=== PATIENT | female | born 1950 | race Caucasian/White ===

== ENCOUNTER → 2016-12-26 | Outpatient (CLI) | payer OTHER, BC ==
[~2016-12-26] MED LIST: FSM70 PO; GLUCOSAMINE; HYDCR1; MULT-506 PO; SYN50 PO; VTMEUNK
--- NOTE | 2016-12-26 12:00 | DIAGNOSTIC IMAGING REPORT ---
LEFT FOOT 3 VIEWS HISTORY: LEFT FOOT PAIN COMPARISON: None. FINDINGS: There is no fracture or dislocation. The Lisfranc joint is intact. Soft tissue and bony bunion. Small sclerotic focus within the proximal phalanx of the first toe consistent with a bone island. Tiny plantar heel spur. Mild osteoarthritis within the first MTP joint. Tiny nonspecific erosion at the medial base of the proximal phalanx of the first toe. No radiopaque foreign bodies. IMPRESSION: 1. Soft tissue and bony bunion. 2. No fractures. 3. Tiny erosion at the base of the proximal phalanx of the first toe. This is nonspecific but could represent gouty arthritis. Electronically signed by: Tico Rey M.D. 12/26/2016 11:58 AM Dictated Date/Time: 12/26/2016 11:55 AM
== END | disposition home or self-care (01) ==
LOC: C.RDSM 12:06
PROVIDERS: ATTEND Physician Assistant
DX: R52 Pain, unspecified (principal)

== ENCOUNTER 2024-05-27 11:26 | Observation (INO) ==
--- NOTE | 2024-05-27 12:01 | Electrocardiogram Report ---
Test Reason : Blood Pressure : */* mmHG Vent. Rate : 80 BPM Atrial Rate : 80 BPM P-R Int : 174 ms QRS Dur : 74 ms QT Int : 416 ms P-R-T Axes : 71 57 77 degrees QTcB Int : 479 ms Normal sinus rhythm Possible Left atrial enlargement Cannot rule out Septal infarct (cited on or before 08-May-2024) Abnormal ECG When compared with ECG of 08-May-2024 07:55, No significant change was found Confirmed by Mitchel Turner ([id number]) on 05/27/2024 12:00:51 PM Referred By: Confirmed By: Mitchel Turner
[2024-05-27 12:11] LABS: Basophils # (auto) 0.02 K/uL (0.00-0.20); Basophils % (auto) 0.4 %; Eosinophils # (auto) 0.01 K/uL (0.00-0.50); Eosinophils % (auto) 0.2 %; Hematocrit (blood only) 36.6 % (37.0-47.0); Hemoglobin 12.3 g/dl (12.0-16.0); Immature Granulocytes # (auto) 0.02 K/uL (0.01-0.20); Immature Granulocytes % (auto) 0.4 %; Lymphocytes # (auto) 0.88 K/uL (1.20-3.40); Lymphocytes % (auto) 17.6 %; Mean Corpuscular Hemoglobin 29.6 pg (25.0-34.0); Mean Corpuscular Hgb Conc 33.6 g/dL (32.0-36.0); Mean Platelet Volume 9.3 fL (9.4-12.4); Monocytes # (auto) 0.22 K/uL (0.11-0.59); Monocytes % (auto) 4.4 %; Neutrophils # (auto) 3.85 K/uL (1.40-6.50); Platelet Count 352 K/uL (130-400); RDW Coefficient of Variation 13.2 % (11.5-14.5); RDW Standard Deviation 42.4 fL (36.4-46.3); Red Blood Count 4.16 M/uL (4.20-5.40)
--- NOTE | 2024-05-27 12:27 | XRay Report ---
XR chest 1V not portable CLINICAL HISTORY: dizziness/recent covid COMPARISON STUDY: Chest radiograph May 08, 2024. FINDINGS: Lung volumes are normal. A hazy 3.8 cm right apical density is present. Postoperative findi ngs within the left lung are noted. There is no pneumothorax or pleural effusion. Cardiac size is nor mal. Mediastinal contours are normal. There is no evidence for pulmonary edema. IMPRESSION: Hazy 3.8 cm right apical density. This is likely artifactual and related to overlying so ft tissues. However, a focus of pneumonia or a pulmonary lesion cannot be excluded. A chest CT is rec ommended. ACT 112: Negative or not required by law. Electronically signed by: Austin Aldana M.D. 05/27/2024 12:26 PM
[2024-05-27 12:29] LABS: Albumin Globulin Ratio 1.6 (0.9-2); Albumin Level 4.5 gm/dl (3.4-5.0); BUN Creatinine Ratio 19.3 (10-20); Bilirubin,Total 0.7 mg/dl (0.2-1.0); Calcium 9.1 mg/dl (8.6-10.3); Creatinine Clr Calc Pharmacy 58.2 ml/min; Globulin 2.8 gm/dl (2.5-4.0); Potassium 3.7 mmol/L (3.5-5.1); Total Protein 7.3 gm/dl (6.0-8.3)
--- NOTE | 2024-05-27 12:38 | Emergency Department Note ---
Impression & Plan Lightheadedness ED Provider Note HISTORY OF PRESENT ILLNESS: Patient is a 74-year-old female presenting with dizziness. Patient reports that she woke up at 3 AM to go to the bathroom and she stood up out of bed and felt very dizzy and lightheaded like she was going to pass out. Reports that she stumbled around in her room and had to hold onto the wall and various pieces of furniture to get to the bathroom. Reports she was able to safely get back to her bed and fell asleep, but woke up at 5 AM and was still having persistent symptoms. States that she took her blood pressure at home and it was systolically in the 190s. She states this is very high for her. She did take her morning antihypertensive. She states feeling significant nausea but denies any vomiting or diarrhea. Denies any headache or changes in vision. She has never had dizziness symptoms like this before. Denies any chest pain or shortness of breath. She is not on any anticoagulation. Denies any DVT or PE history. She does report that her legs have been having cramping bilaterally in the popliteal region over the last few weeks. Denies any recent falls or head injuries. Denies any numbness, tingling or weakness in her extremities. Patient reports she was diagnosed with COVID in early April and completed a course of Paxlovid. States that she been doing well up until this morning. Patient denies any recent fevers. ROS: as above PHYSICAL EXAM: Constitutional: Patient appears in no acute distress. HENT: Head: Normocephalic and atraumatic. Eyes: EOMI, PERRL Mouth/Throat: Mucous membranes moist. Neck: Trachea midline. Neck supple. Cardiovascular: RRR, No murmurs, rubs or gallops. Intact distal pulses. Pulmonary/Chest: No respiratory distress. Breath sounds clear and equal bilaterally. No wheezes or rales. Abdominal: Abdomen soft, no tenderness, rebound or guarding. Musculoskeletal: No edema, tenderness or deformity noted. Skin: Warm and dry. No rash, erythema, pallor or cyanosis Psychiatric: Appropriate mood and affect for situation. Neurological: Alert and keenly responsive. Facies symmetric. Able to raise eyebrows, close eyes, smile, puff mouth, stick out tongue, move tongue left and right and raise palate symmetrically. Able to shrug shoulders. PERRLA. SILT to forehead below eye and at jawline. Can hear soft noise bilaterally. Strength 5/5 in bilateral upper and lower extremities. SILT throughout bilateral upper and lower extremities. MDM: - Vitals signs showed hypertension - History obtained via patient. History as above. - Chronic conditions affecting care: hypothyroidism; HTN - Differential diagnoses include, but are not limited to: CVA; intracranial hemorrhage; ACS; dysrhythmia; electrolyte abnormality; PE; pneumonia - Order placed for continuous cardiac monitoring. At this time, monitor showed rate of 65 bpm with normal sinus rhythm, per my interpretation. - External medical records reviewed. - EKG interpreted by myself showed normal sinus rhythm. Rate 80 bpm. QT 416. No acute ischemic changes. - Laboratory workup interpreted by myself showed normal WBC; normal D-dimer; slight hyponatremia (Na 134); hyperglycemia (glucose 131); normal troponin - UA negative for infection - CXR negative for pneumonia, per my interpretation. Radiology notes that he has the 3.8 cm right apical density which could be artifactual but could also be a focus of pneumonia or pulmonary lesion. - CT head wo contrast negative for acute pathology - CTA head wo contrast negative for acute pathology - CTA neck negative for acute pathology. - Viral respiratory panel positive for COVID-19. However, this is likely a false positive, as patient did test positive earlier in the month and was started on Paxlovid. - Orthostatic vital signs were stable. However, when the patient was sitting and standing she felt lightheaded. - Patient given 500 cc NS. Patient is not describing a vertiginous type of dizziness. States that she feels lightheaded like she is going to pass out. - On reassessment, patient is still reporting intermittent episodes of lightheadedness and dizziness. Concern for the patient to go home, she lives by herself and is feeling very lightheaded and unsteady on her feet. Will admit to hospitalist service. - Discussion was had with case work aide about patient's case and need for admission - Hospitalist consulted for admission - Patient admitted to [facility] hospitalist service for further evaluation and management. ASSESSMENT AND PLAN: Diagnosis: Lightheadedness Plan: Admit Past Med/Surg History Problem List (Updated 05/27/24 @ 16:27 by Summer Middleton MD) Lightheadedness (Acute) COVID-19 (Acute) Hypothyroid HTN (hypertension) 03/18/23 started on Losartan by cardio (was previously monitoring) Medical History (Updated 05/27/24 @ 16:27 by Summer Middleton MD) Hypogammaglobulinemia does not receive treatment; monitored per pt Scoliosis Chronic venous insufficiency wears compression stockings daily Asthma mild per pt; no inhaler use Chronic sinusitis with deviated septum Osteoarthritis Breast CA s/p b/l mastectomy 2009; no chemo or radiation Lung cancer s/p L upper wedge resection 2005; no chemo or radiation Surgical History History of cataract surgery right cataract History of lung surgery left upper lobe wedge resection 2012 H/O bilateral mastectomy for breast ca 2009 H/O varicose vein ligation Hx laparoscopic cholecystectomy Hx of tonsillectomy Status post total hip replacement, right 2005 Family History (Updated 04/26/23 @ 10:26 by Ann-Marie Feliz, CHAMP) Other No family history of adverse response to anesthesia Social History Smoking Status: Never smoker Second Hand Exposure: No; Do You Dip or Chew Tobacco: No; Hx Alcohol Use: Yes Alcohol type: wine Hx Substance Use: No Preferred Language: Slovak Communication Ability: Effective Hand Screen Printer Required: No Beliefs That Will Affect Care: None Current Living Situation: Alone Feels Safe at Home: Yes Assistive Devices: Denture - Upper and Glasses Allergies Allergies Allergy/AdvReac Type Severity Reaction Status Date / Time isoflurane Allergy Severe Unknown Verified 05/08/24 09:32 Nitrate Analogues Allergy Mild Verified 05/08/24 09:32 nitrofurantoin Allergy Mild Verified 05/08/24 09:32 Sulfa (Sulfonamide Allergy Mild Verified 05/08/24 09:32 Antibiotics) sulfamethoxazole Allergy Mild Verified 05/08/24 09:32 trimethoprim Allergy Mild Verified 05/08/24 09:32 vancomycin Allergy Verified 05/08/24 09:32 Home Meds Home Medications Medication Instructions Recorded Confirmed levothyroxine 75 mcg tablet 75 mcg PO 5XWK 04/01/23 05/27/24 (Synthroid) losartan 25 mg tablet 25 mg PO BID 04/01/23 05/27/24 famotidine 20 mg tablet (Pepcid) 20 mg PO DAILY PRN Heartburn 04/26/23 05/27/24 multivitamin 1 tab PO BID 04/26/23 05/27/24 lactobacillus combination no.4 3 3,000 mmu cells PO DAILY 05/08/24 05/27/24 billion cell capsule (Probiotic) levothyroxine 50 mcg tablet 50 mcg PO 2XWK 05/08/24 05/27/24 (Synthroid) Previous Rx's Medication Instructions Recorded albuterol sulfate 90 mcg/actuation 2 inh inhalation .q4-6h PRN 05/08/24 aerosol inhaler (Ventolin HFA) shortness of breath or wheezing #6.7 grams ondansetron 4 mg disintegrating 4 mg PO Q6H PRN nausea and 05/08/24 tablet vomiting #15 tabs Results & Data (ED) Vital Signs Vital Signs - 24 hr 05/27/24 11:32 05/27/24 12:24 05/27/24 13:00 Temperature 36.4 C L Temperature Source Oral Pulse Rate - Lying Pulse Rate - Sitting Pulse Rate - Standing Pulse Rate 80 73 Pulse Rate [Finger] 73 Pulse Strength Normal Respiratory Rate 16 14 Respiratory Effort / Characteristics Non-Labored Spontaneous Respiratory Depth Normal Respiratory Pattern Regular Blood Pressure - Lying Blood Pressure - Sitting Blood Pressure- Standing Blood Pressure 198/84 H Blood Pressure [Right Arm] 157/81 H Blood Pressure Mean 122 Blood Pressure Mean [Right Arm] 106 Blood Pressure Position Sitting Pulse Oximetry 98 92 Oxygen Delivery Method Room Air Room Air Sepsis Recent Fever Within 48 Hours No Sepsis New/Unexplained Change in Mental Status No Sepsis Action Taken by Nursing No Action Required 05/27/24 15:00 05/27/24 15:57 05/27/24 16:25 Temperature Temperature Source Pulse Rate - Lying 69 Pulse Rate - Sitting 71 Pulse Rate - Standing 81 Pulse Rate 77 Pulse Rate [Finger] 65 Pulse Strength Respiratory Rate 18 Respiratory Effort / Characteristics Respiratory Depth Respiratory Pattern Blood Pressure - Lying 153/75 H Blood Pressure - Sitting 170/81 H Blood Pressure- Standing 145/80 H Blood Pressure Blood Pressure [Right Arm] 150/79 H Blood Pressure Mean Blood Pressure Mean [Right Arm] 102 Blood Pressure Position Pulse Oximetry 98 Oxygen Delivery Method Room Air Sepsis Recent Fever Within 48 Hours Sepsis New/Unexplained Change in Mental Status Sepsis Action Taken by Nursing Laboratory Data 05/27/24 11:47 05/27/24 11:47 Lab Results 05/27/24 05/27/24 05/27/24 Range/Units 11:47 11:49 12:28 WBC 5.00 (4.8-10.8) K/ul RBC 4.16 L (4.20-5.40) M/uL Hgb 12.3 (12.0-16.0) g/dl Hct 36.6 L (37.0-47.0) % MCV 88.0 (80.0-100.0) fL MCH 29.6 (25.0-34.0) pg MCHC 33.6 (32.0-36.0) g/dL RDW Std Deviation 42.4 (36.4-46.3) fL RDW Coeff of Bryanna 13.2 (11.5-14.5) % Plt Count 352 (130-400) K/uL MPV 9.3 L (9.4-12.4) fL Immature Gran % (Auto) 0.4 % Neut % (Auto) 77.0 % Lymph % (Auto) 17.6 % Johnston % (Auto) 4.4 % Eos % (Auto) 0.2 % Baso % (Auto) 0.4 % Neut # (Auto) 3.85 (1.40-6.50) K/uL Lymph # (Auto) 0.88 L (1.20-3.40) K/uL Johnston # (Auto) 0.22 (0.11-0.59) K/uL Eos # (Auto) 0.01 (0.00-0.50) K/uL Baso # (Auto) 0.02 (0.00-0.20) K/uL Immature Gran # (Auto) 0.02 (0.01-0.20) K/uL D-Dimer 450 (0-500) ug/L FEU Sodium 134 L (136-145) mmol/L Potassium 3.7 (3.5-5.1) mmol/L Chloride 100 (98-107) mmol/L Carbon Dioxide 27 (21-32) mmol/L Anion Gap 7 (3-11) BUN 11 (6-23) mg/dl Creatinine 0.57 L (0.6-1.2) mg/dl Est Cr Clr Drug Dosing 58.2 ml/min eGFR 94.12 BUN/Creatinine Ratio 19.3 (10-20) Glucose 131 H (70-99(Fasting)) mg/dl Calcium 9.1 (8.6-10.3) mg/dl Magnesium 1.9 (1.7-2.4) mg/dl Total Bilirubin 0.7 (0.2-1.0) mg/dl AST 31 (13-39) U/L ALT 22 (7-52) U/L Alkaline Phosphatase 57 (34-104) U/L Troponin I High Sens 7.4 (0-14) pg/ml Total Protein 7.3 (6.0-8.3) gm/dl Albumin 4.5 (3.4-5.0) gm/dl Globulin 2.8 (2.5-4.0) gm/dl Albumin/Globulin Ratio 1.6 (0.9-2) Urine Color Yellow Urine Appearance Clear (Clear) Urine pH 7.5 (4.5-7.5) Ur Specific Penrose 1.004 (1.000-1.030) Urine Protein Negative (Negative) Urine Glucose (UA) Negative (Negative) Urine Ketones Negative (Negative) Urine Blood Negative (Negative) Urine Nitrite Negative (Negative) Urine Bilirubin Negative (Negative) Urine Urobilinogen Negative (Negative) Ur Leukocyte Esterase Negative (Negative) Adenovirus (PCR) Not Detected (NotDetected) B. pertussis DNA (PCR) Not Detected (NotDetected) B.parapertussis DNA PCR Not Detected (NotDetected) C. pneumoniae DNA (PCR) Not Detected (NotDetected) Coronavirus OC43 (PCR) Not Detected (NotDetected) Coronavirus HKU1 (PCR) Not Detected (NotDetected) Coronavirus 229E (PCR) Not Detected (NotDetected) SARS-CoV-2 (PCR) DETECTED A (NotDetected) Coronavirus NL63 (PCR) Not Detected (NotDetected) Human Metapneumovir PCR Not Detected (NotDetected) Influenza Type A (PCR) Not Detected (NotDetected) Influenza Type B (PCR) Not Detected (NotDetected) M. pneumoniae (PCR) Not Detected (NotDetected) Parainfluenza 1 (PCR) Not Detected (NotDetected) Parainfluenza 2 (PCR) Not Detected (NotDetected) Parainfluenza 3 (PCR) Not Detected (NotDetected) Parainfluenza 4 (PCR) Not Detected (NotDetected) RSV (PCR) Not Detected (NotDetected) Entero/Rhino (PCR) Not Detected (NotDetected) Administered Medications Discontinued Medications Sodium Chloride (Nss) 500 mls @ 999 mls/hr IV .Q31M ONE Stop: 05/27/24 13:08 Last Infusion: 05/27/24 13:15 Dose: Infused Documented By: LUIS FELIPE Admin: 05/27/24 12:41 Dose: 999 mls/hr Documented By: LUIS FELIPE Ioversol (Optiray 320 125ml) 112 ml IV ONCE ONE Stop: 05/27/24 14:04 Last Admin: 05/27/24 14:03 Dose: 112 ml Documented By: SHIRA Ondansetron HCl (Ondansetron Inj 2 Mg/Ml 2 Ml Vial) 4 mg IV NOW STA Stop: 05/27/24 12:39 Last Admin: 05/27/24 12:41 Dose: 4 mg Documented By: LUIS FELIPE Imaging Data Radiologist's Impression: Chest X-Ray 05/27/24 11:36 XR chest 1V not portable CLINICAL HISTORY: dizziness/recent covid COMPARISON STUDY: Chest radiograph May 08, 2024. FINDINGS: Lung volumes are normal. A hazy 3.8 cm right apical density is present. Postoperative findings within the left lung are noted. There is no pneumothorax or pleural effusion. Cardiac size is normal. Mediastinal contours are normal. There is no evidence for pulmonary edema. IMPRESSION: Hazy 3.8 cm right apical density. This is likely artifactual and related to overlying soft tissues. However, a focus of pneumonia or a pulmonary lesion cannot be excluded. A chest CT is recommended. ACT 112: Negative or not required by law. Electronically signed by: Austin Aldana M.D. 05/27/2024 12:[address] 05/27/24 13:30 CT OF THE HEAD WITHOUT CONTRAST CLINICAL HISTORY: dizziness COMPARISON STUDY: Head CT April 15, 2008. TECHNIQUE: Helical axial images of the head were obtained without IV contrast. Automated exposure control was utilized for the study. A dose lowering technique was utilized adhering to the principles of ALARA. FINDINGS: No acute intracranial hemorrhage, midline shift or mass effect is present. The ventricular system is unremarkable. The basal cisterns are patent. No extra-axial collections are present. There are no findings to suggest acute dural sinus thrombosis or acute territorial infarct. No significant calvarial abnormalities are present. Left maxillary sinus air-fluid level is present. There is moderate ethmoid sinus mucosal thickening. IMPRESSION: 1. No acute intracranial findings. 2. Left maxillary sinus air-fluid level and moderate ethmoid sinus mucosal thickening. The findings may represent acute sinusitis. ACT 112: Negative or not required by law. Electronically signed by: Austin Aldana M.D. 05/27/2024 2:40 PM Head CTA 05/27/24 13:30 CTA ANGIOGRAPHY OF THE HEAD CLINICAL HISTORY: Dizziness. COMPARISON STUDY: Head CT April 15, 2008. TECHNIQUE: Helical axial images of the head were obtained following uneventful intravenous administration of 112 cc of Optiray. Sagittal and coronal reconstructions were viewed as well as maximal intensity projections on an independent 3-D workstation. Automated exposure control was utilized for the study. A dose lowering technique was utilized adhering to the principles of ALARA. FINDINGS: No acute intracranial hemorrhage, midline shift or mass effect is present. System is normal. Basal cisterns are patent. There are no extra-axial collections. There is a moderate-sized air-fluid level within the left maxillary sinus. There is moderate ethmoid sinus mucosal thickening. There are minimal secretions within the sphenoid sinuses. The bilateral M1, M2, A1 and A2 segments are patent. There is no intracranial aneurysm. Posterior circulation is intact. No vessel occlusion is identified. IMPRESSION: 1. No large vessel occlusion. No intracranial aneurysm. 2. Left maxillary sinus air-fluid level with moderate ethmoid sinus mucosal thickening. The findings favor acute sinusitis. ACT 112: Negative or not required by law. Electronically signed by: Austin Aldana M.D. 05/27/2024 2:24 PM Neck CTA 05/27/24 13:30 CT angio neck with con CLINICAL HISTORY: dizziness. COMPARISON STUDY: None TECHNIQUE: Following the IV administration of 112 of Optiray, CT angiogram of the neck was performed from the aortic arch to the skull base. Images are reviewed in the axial, sagittal, and coronal planes. 3-D MIPS images are created and assessed. IV contrast was administered without complication. All measurements were calculated based on NASCET criteria. A dose lowering technique was utilized adhering to the principles of ALARA. CT DOSE: 1060.68 mGy.cm FINDINGS: Visualized bilateral common and internal carotid and vertebral arteries show no significant narrowing or occlusion. Left vertebral artery is diminutive beyond PICA, anatomic variant. There is a small amount of layering fluid in the left maxillary sinus consistent with sinusitis. There are moderate cervical spine degenerative changes. IMPRESSION: No significant arterial narrowing or occlusions seen at the neck. ACT 112: Negative or not required by law. The above report was generated using voice recognition software. It may contain grammatical, syntax or spelling errors. Electronically signed by: Subhash Romero M.D. 05/27/2024 2:40 PM Discharge Plan Visit Data Chief Complaint: TIA Symptoms Stated Complaint: DIZZY/2HRS, HIGH BP, HEADACHE, LIPS FELT FUNNY ED Provider: Summer Middleton Discharge Problem: Lightheadedness Forms Stand Alone Forms: My [facility] [employer] Prescriptions Prescriptions: No Action levothyroxine [Synthroid] 75 mcg Tablet 75 mcg PO 5XWK Rx Instructions: Saturday - Saturday losartan 25 mg Tablet 25 mg PO BID multivitamin Tablet 1 tab PO BID famotidine [Pepcid] 20 mg Tablet 20 mg PO DAILY PRN (Reason: Heartburn) levothyroxine [Synthroid] 50 mcg tablet 50 mcg PO 2XWK Rx Instructions: Saturday and Saturday. Start Date 04/10/24 x6 weeks Probiotic 3 billion cell Capsule 3,000 mmu cells PO DAILY Rx Instructions: administer with a meal albuterol sulfate [Ventolin HFA] 90 mcg/actuation HFA aerosol inhaler 2 inh inhalation .q4-6h PRN (Reason: shortness of breath or wheezing) Qty: 6.7 0RF ondansetron 4 mg tablet,disintegrating 4 mg PO Q6H PRN (Reason: nausea and vomiting) Qty: 15 0RF Referrals Referrals: Sheng Hamilton M.D. [Primary Care Provider] -
[2024-05-27 12:41] LABS: Appearance Urine Clear (Clear); Bilirubin Urine Negative (Negative); Blood Urine Negative (Negative); Color Urine Yellow; Glucose Urine UA Negative (Negative); Ketones Urine Negative (Negative); Leukocyte Esterase Urine Negative (Negative); Nitrite Urine Negative (Negative); Protein Urine Negative (Negative); Specific Gravity Urine 1.004 (1.000-1.030); Urobilinogen Urine Negative (Negative); pH Urine 7.5 (4.5-7.5)
[2024-05-27] MEDS: SODIUM CHLORIDE 0.9% 500 ML IV ONE (12:41)
[2024-05-27] MEDS: ONDANSETRON INJ 2 MG/ML 2 ML VIAL IV STA (12:41)
[2024-05-27 12:53] LABS: Adenovirus PCR Not Detected (NotDetected); Bordetella parapertussis PCR Not Detected (NotDetected); Bordetella pertussis PCR Not Detected (NotDetected); Chlamydia pneumoniae PCR Not Detected (NotDetected); Coronavirus 229E PCR Not Detected (NotDetected); Coronavirus CoV-2 (COVID19)PCR DETECTED (NotDetected); Coronavirus HKU1 PCR Not Detected (NotDetected); Coronavirus NL63 PCR Not Detected (NotDetected); Coronavirus OC43PCR Not Detected (NotDetected); Human Metapneumovirus PCR Not Detected (NotDetected); Influenza A PCR Not Detected (NotDetected); Influenza B PCR Not Detected (NotDetected); Mycoplasma pneumoniae PCR Not Detected (NotDetected); Parainfluenza Virus 1 PCR Not Detected (NotDetected); Parainfluenza Virus 2 PCR Not Detected (NotDetected); Parainfluenza Virus 3 PCR Not Detected (NotDetected); Parainfluenza Virus 4 PCR Not Detected (NotDetected); Respiratory Syncytial VirusPCR Not Detected (NotDetected); Rhinovirus/Enterovirus PCR Not Detected (NotDetected)
[2024-05-27 13:02] LABS: Magnesium 1.9 mg/dl (1.7-2.4)
[2024-05-27 13:10] LABS: Troponin I High Sensitivity 7.4 pg/ml (0-14)
[2024-05-27 13:13] LABS: D Dimer 450 ug/L FEU (0-500)
[2024-05-27] MEDS: OPTIRAY 320 125ml IV ONE (14:03)
--- NOTE | 2024-05-27 14:26 | CT Scan Report ---
CTA ANGIOGRAPHY OF THE HEAD CLINICAL HISTORY: Dizziness. COMPARISON STUDY: Head CT April 15, 2008. TECHNIQUE: Helical axial images of the head were obtained following uneventful intravenous administr ation of 112 cc of Optiray. Sagittal and coronal reconstructions were viewed as well as maximal inten sity projections on an independent 3-D workstation. Automated exposure control was utilized for the study. A dose lowering technique was utilized adhering to the principles of ALARA. FINDINGS: No acute intracranial hemorrhage, midline shift or mass effect is present. System is normal . Basal cisterns are patent. There are no extra-axial collections. There is a moderate-sized air-flui d level within the left maxillary sinus. There is moderate ethmoid sinus mucosal thickening. There ar e minimal secretions within the sphenoid sinuses. The bilateral M1, M2, A1 and A2 segments are patent . There is no intracranial aneurysm. Posterior circulation is intact. No vessel occlusion is identifi ed. IMPRESSION: 1. No large vessel occlusion. No intracranial aneurysm. 2. Left maxillary sinus air-fluid level with moderate ethmoid sinus mucosal thickening. The findings favor acute sinusitis. ACT 112: Negative or not required by law. Electronically signed by: Austin Aldana M.D. 05/27/2024 2:24 PM
--- NOTE | 2024-05-27 14:42 | CT Scan Report ---
CT angio neck with con CLINICAL HISTORY: dizziness. COMPARISON STUDY: None TECHNIQUE: Following the IV administration of 112 of Optiray, CT angiogram of the neck was performed from the aortic arch to the skull base. Images are reviewed in the axial, sagittal, and coronal plane s. 3-D MIPS images are created and assessed. IV contrast was administered without complication. All m easurements were calculated based on NASCET criteria. A dose lowering technique was utilized adherin g to the principles of ALARA. CT DOSE: 1060.68 mGy.cm FINDINGS: Visualized bilateral common and internal carotid and vertebral arteries show no significant narrowing or occlusion. Left vertebral artery is diminutive beyond PICA, anatomic variant. There is a small amount of layering fluid in the left maxillary sinus consistent with sinusitis. There are mod erate cervical spine degenerative changes. IMPRESSION: No significant arterial narrowing or occlusions seen at the neck. ACT 112: Negative or not required by law. The above report was generated using voice recognition software. It may contain grammatical, syntax o r spelling errors. Electronically signed by: Subhash Romero M.D. 05/27/2024 2:40 PM
--- NOTE | 2024-05-27 14:42 | CT Scan Report ---
CT OF THE HEAD WITHOUT CONTRAST CLINICAL HISTORY: dizziness COMPARISON STUDY: Head CT April 15, 2008. TECHNIQUE: Helical axial images of the head were obtained without IV contrast. Automated exposure con trol was utilized for the study. A dose lowering technique was utilized adhering to the principles o f ALARA. FINDINGS: No acute intracranial hemorrhage, midline shift or mass effect is present. The ventricular system is unremarkable. The basal cisterns are patent. No extra-axial collections are present. There are no findings to suggest acute dural sinus thrombosis or acute territorial infarct. No significant calvarial abnormalities are present. Left maxillary sinus air-fluid level is present. There is modera te ethmoid sinus mucosal thickening. IMPRESSION: 1. No acute intracranial findings. 2. Left maxillary sinus air-fluid level and moderate ethmoid sinus mucosal thickening. The findings m ay represent acute sinusitis. ACT 112: Negative or not required by law. Electronically signed by: Austin Aldana M.D. 05/27/2024 2:40 PM
--- NOTE | 2024-05-27 16:38 | History & Physical Report ---
Date of Service May 27, 2024 Assessment & Plan (1) Dizziness: (2) Stroke-like symptoms: (3) Hypogammaglobulinemia: Dominick Eddy is a 74-year-old female with PMH of HTN, hypothyroidism, IGG/IGA deficiency, breast cancer, and wedge resection of left lung in 2012. She presented on 05/27 for dizziness, vertigo, nausea, and chills that began around 0300 that morning. She tried to go to the bathroom, but had to hold onto the smith. Initially she thought she was dehydrated, and after being in the bathroom, she got to her recliner chair and tried to sip some Pedialyte. This dizziness lasted for approximately 3 hours, and was present at rest. #Strokelike symptoms/dizziness/nausea Patient may have had 1 transient episode of vertigo around a year ago, but it was never at rest or as bad as this Head/neck imaging on arrival without acute findings Brain MRI ordered, pending Meclizine 12.5mg q6h as needed for dizziness/vertigo DDx includes vertigo, labyrinthitis from recent covid, vertebral stroke, and TIA (among other etiologies) Permissive hypertension pending brain MRI (hold p.m. losartan on 05/27) Aspirin pending brain MRI IV antiemetics as needed #Recent COVID 19 infection Patient tested positive on 05/08/2024 Completed course of Paxlovid, ceftin ? Inflammation of inner ear following covid infection Given timeline of symptoms, no need for isolation precautions as patient is now >2 weeks out #IgG deficiency Ig G, A, M panel ordered, pending May need to discuss with immunology for IVIG #Pulmonary nodule 3.8 cm right apical density noted on CXR D-dimer negative Chest CT ordered, pending Disposition: Obs - Admit to [facility] Telemetry Full code Regular diet VTE PPx: MRI pending (SCDs for now; chemical DVT PPx to be added pending brain MRI) History of Present Illness Chief Complaint: TIA symptoms Primary Care Provider: Sheng Hamilton Nunu is a 74-year-old female with PMH of HTN, hypothyroidism, IGG/IGA deficiency, bilateral mastectomy, breast cancer, lung cancer, and wedge resection of left lung in 2012. She presented on 05/27 for dizziness, vertigo, nausea, and chills that began around 0300 that morning. Patient recently had a COVID infection that was diagnosed on 05/08. She completed a course of Paxlovid on 05/12, and was also given Ceftin and an inhaler for possible pneumonia. 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 She went to bed last night feeling fine, however she woke this morning around 3 AM, and could not get out of bed because she was so dizzy. She tried to go to the bathroom, but had to hold onto the smith. Initially she thought she was dehydrated, and after being in the bathroom, she got to her recliner chair and tried to sip some Pedialyte. This dizziness lasted for approximately 3 hours, and was present at rest. She also has concerns, as her blood pressure has been really high this morning (she reports it was ~190/90). No strokelike symptoms appreciated (no slurred speech, facial droop, or unilate ral deficits this morning). Patient did have a transient episode of vertigo around 1 year ago, but this felt differently. Patient lives by herself. Patient does have a history of low IgG and IgA levels, but does not receive gammaglobulin out of fear of blood clots. Patient is hypertensive at 150/79 at time of admission. ED course: Zofran 4 mg IV NSS 500 mL IV ROS: Patient endorses severe dizziness, chills, and nausea. Patient denies slurred speech, facial droop, unilateral deficits, fever, headache, ear pain, tinnitus, rashes, chest pain, chest palpitations, SOB, ORDOÑEZ, abdominal pain, vomiting, diarrhea, burning with urination, or changes in urinary/bowel habits. Allergies Allergy/AdvReac Type Severity Reaction Status Date / Time isoflurane Allergy Severe Unknown Verified 05/08/24 09:32 Nitrate Analogues Allergy Mild Verified 05/08/24 09:32 nitrofurantoin Allergy Mild Verified 05/08/24 09:32 Sulfa (Sulfonamide Allergy Mild Verified 05/08/24 09:32 Antibiotics) sulfamethoxazole Allergy Mild Verified 05/08/24 09:32 trimethoprim Allergy Mild Verified 05/08/24 09:32 vancomycin Allergy Verified 05/08/24 09:32 Home Medications Medication Instructions Recorded Confirmed Type levothyroxine 75 mcg tablet 75 mcg PO 5XWK 04/01/23 05/27/24 History (Synthroid) losartan 25 mg tablet 25 mg PO BID 04/01/23 05/27/24 History famotidine 20 mg tablet (Pepcid) 20 mg PO DAILY PRN Heartburn 04/26/23 05/27/24 History multivitamin 1 tab PO BID 04/26/23 05/27/24 History albuterol sulfate 90 mcg/actuation 2 inh inhalation .q4-6h PRN 05/08/24 05/27/24 Rx aerosol inhaler (Ventolin HFA) shortness of breath or wheezing #6.7 grams lactobacillus combination no.4 3 3,000 mmu cells PO DAILY 05/08/24 05/27/24 History billion cell capsule (Probiotic) levothyroxine 50 mcg tablet 50 mcg PO 2XWK 05/08/24 05/27/24 History (Synthroid) ondansetron 4 mg disintegrating 4 mg PO Q6H PRN nausea and 05/08/24 05/27/24 Rx tablet vomiting #15 tabs Past Med/Surg History Problem List (Updated 05/27/24 @ 17:29 by Tico Landers PA-C) Hypogammaglobulinemia does not receive treatment; monitored per pt Stroke-like symptoms Dizziness Lightheadedness (Acute) COVID-19 (Acute) Hypothyroid HTN (hypertension) 03/18/23 started on Losartan by cardio (was previously monitoring) Medical History (Updated 05/27/24 @ 17:29 by Tico Landers PA-C) Scoliosis Chronic venous insufficiency wears compression stockings daily Asthma mild per pt; no inhaler use Chronic sinusitis with deviated septum Osteoarthritis Breast CA s/p b/l mastectomy 2009; no chemo or radiation Lung cancer s/p L upper wedge resection 2005; no chemo or radiation Surgical History History of cataract surgery right cataract History of lung surgery left upper lobe wedge resection 2012 H/O bilateral mastectomy for breast ca 2009 H/O varicose vein ligation Hx laparoscopic cholecystectomy Hx of tonsillectomy Status post total hip replacement, right 2005 Family History (Updated 04/26/23 @ 10:26 by Ann-Marie Feliz RN) Other No family history of adverse response to anesthesia Social History Smoking Status: Never smoker Second Hand Exposure: No; Do You Dip or Chew Tobacco: No; Hx Alcohol Use: Yes Alcohol type: wine Hx Substance Use: No Preferred Language: [place] Communication Ability: Effective Pound Keeper Required: No Beliefs That Will Affect Care: None Current Living Situation: Alone Feels Safe at Home: Yes Assistive Devices: Denture - Upper and Glasses Review of Systems Review of Systems: See HPI above Physical Exam Physical Exam: General: no acute distress; anxious; non-toxic appearing; frail-appearing; cooperative; SpO2 98% on RA HEENT: normocephalic, atraumatic; no scleral icterus; PERRLA; vision and hearing grossly intact; patient demonstrates ability to raise eyebrows and smile without unilateral deficits Neck: supple; no lymphadenopathy; trachea midline; patient demonstrates ability to shrug shoulders against resistance and rotate neck without unilateral deficits Skin: warm, dry without signs of tenting; no cyanosis; no rashes, bruising, lesions, or erythema noted CV: chest wall NTP; RRR; S1/S2 normal; no murmurs/rubs/gallops; pulses intact and symmetric at radial, DP, and PT Lungs: no acute respiratory distress; symmetrical chest wall expansion; clear breath sounds across all lung carroll w/o adventitious sounds; no wheezing ABD: Soft, NTP; BS present; epigastric hernia noted; no rebound/guarding; no distention MSK: no tics or fasciculations; no edema noted in the LEs b/l, nonerythematous; 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; patient demonstrates ability to wiggle toes/plantarflex/dorsiflex bilaterally without unilateral deficits Neuro: A&Ox3; normal mood and affect; fluent speech; no focal deficits; patient reports sensation is intact and symmetric in the face/upper extremities/lower extremities bilaterally assessed via light touch Results & Data Results & Data Vital Signs (Past 12 Hours) Vital Signs Temp Pulse Pulse Resp BP BP Pulse Ox 05/27/24 16:25 77 05/27/24 15:00 65 18 150/79 H 98 05/27/24 13:00 73 14 157/81 H 92 05/27/24 12:24 73 05/27/24 11:32 36.4 C L 80 16 198/84 H 98 O2 Del Method 05/27/24 16:25 05/27/24 15:00 Room Air 05/27/24 13:00 Room Air 05/27/24 12:24 05/27/24 11:32 Room Air Laboratory Results Abnormal lab results 05/27/24 05/27/24 Range/Units 11:47 11:49 RBC 4.16 L (4.20-5.40) M/uL Hct 36.6 L (37.0-47.0) % MPV 9.3 L (9.4-12.4) fL Lymph # (Auto) 0.88 L (1.20-3.40) K/uL Sodium 134 L (136-145) mmol/L Creatinine 0.57 L (0.6-1.2) mg/dl Glucose 131 H (70-99(Fasting)) mg/dl SARS-CoV-2 (PCR) DETECTED A (NotDetected) Diagnostic Findings Chest X-Ray 05/27/24 11:36 XR chest 1V not portable CLINICAL HISTORY: dizziness/recent covid COMPARISON STUDY: Chest radiograph May 08, 2024. FINDINGS: Lung volumes are normal. A hazy 3.8 cm right apical density is present. Postoperative findings within the left lung are noted. There is no pneumothorax or pleural effusion. Cardiac size is normal. Mediastinal contours are normal. There is no evidence for pulmonary edema. IMPRESSION: Hazy 3.8 cm right apical density. This is likely artifactual and related to overlying soft tissues. However, a focus of pneumonia or a pulmonary lesion cannot be excluded. A chest CT is recommended. ACT 112: Negative or not required by law. Electronically signed by: Austin Aldana M.D. 05/27/2024 12:[address] 05/27/24 13:30 CT OF THE HEAD WITHOUT CONTRAST CLINICAL HISTORY: dizziness COMPARISON STUDY: Head CT April 15, 2008. TECHNIQUE: Helical axial images of the head were obtained without IV contrast. Automated exposure control was utilized for the study. A dose lowering technique was utilized adhering to the principles of ALARA. FINDINGS: No acute intracranial hemorrhage, midline shift or mass effect is present. The ventricular system is unremarkable. The basal cisterns are patent. No extra-axial collections are present. There are no findings to suggest acute dural sinus thrombosis or acute territorial infarct. No significant calvarial abnormalities are present. Left maxillary sinus air-fluid level is present. There is moderate ethmoid sinus mucosal thickening. IMPRESSION: 1. No acute intracranial findings. 2. Left maxillary sinus air-fluid level and moderate ethmoid sinus mucosal thickening. The findings may represent acute sinusitis. ACT 112: Negative or not required by law. Electronically signed by: Austin Aldana M.D. 05/27/2024 2:40 PM Head CTA 05/27/24 13:30 CTA ANGIOGRAPHY OF THE HEAD CLINICAL HISTORY: Dizziness. COMPARISON STUDY: Head CT April 15, 2008. TECHNIQUE: Helical axial images of the head were obtained following uneventful intravenous administration of 112 cc of Optiray. Sagittal and coronal reconstructions were viewed as well as maximal intensity projections on an independent 3-D workstation. Automated exposure control was utilized for the study. A dose lowering technique was utilized adhering to the principles of ALARA. FINDINGS: No acute intracranial hemorrhage, midline shift or mass effect is present. System is normal. Basal cisterns are patent. There are no extra-axial collections. There is a moderate-sized air-fluid level within the left maxillary sinus. There is moderate ethmoid sinus mucosal thickening. There are minimal secretions within the sphenoid sinuses. The bilateral M1, M2, A1 and A2 segments are patent. There is no intracranial aneurysm. Posterior circulation is intact. No vessel occlusion is identified. IMPRESSION: 1. No large vessel occlusion. No intracranial aneurysm. 2. Left maxillary sinus air-fluid level with moderate ethmoid sinus mucosal thickening. The findings favor acute sinusitis. ACT 112: Negative or not required by law. Electronically signed by: Austin Aldana M.D. 05/27/2024 2:24 PM Neck CTA 05/27/24 13:30 CT angio neck with con CLINICAL HISTORY: dizziness. COMPARISON STUDY: None TECHNIQUE: Following the IV administration of 112 of Optiray, CT angiogram of the neck was performed from the aortic arch to the skull base. Images are reviewed in the axial, sagittal, and coronal planes. 3-D MIPS images are created and assessed. IV contrast was administered without complication. All measurements were calculated based on NASCET criteria. A dose lowering technique was utilized adhering to the principles of ALARA. CT DOSE: 1060.68 mGy.cm FINDINGS: Visualized bilateral common and internal carotid and vertebral arteries show no significant narrowing or occlusion. Left vertebral artery is diminutive beyond PICA, anatomic variant. There is a small amount of layering fluid in the left maxillary sinus consistent with sinusitis. There are moderate cervical spine degenerative changes. IMPRESSION: No significant arterial narrowing or occlusions seen at the neck. ACT 112: Negative or not required by law. The above report was generated using voice recognition software. It may contain grammatical, syntax or spelling errors. Electronically signed by: Subhash Romero M.D. 05/27/2024 2:40 PM ECG Additional Comments: ECG revealed NSR at 80 bpm; QTc 479 Code Status & VTE Plan Code Status Full code VTE Prophylaxis Plan VTE Prophylaxis will be ordered: Yes Supervising Physician Co-Signing Physician Notes Patient seen and examined, chart reviewed, case discussed with Tico Landers PA-C and I agree with the assessment and plan as above except as otherwise noted Labs and images reviewed Nunu is a 74-year-old female with recent COVID who presents with dizziness. She was diagnosed with COVID around 4 weeks ago and completed Paxlovid, remains COVID-positive. She presents for hypertension and dizziness. She reports that she is too dizzy to walk independently and could not get out of bed or go to the bathroom. Room does not have a spinning quality, she feels severely off balance. She did have an episode of vertigo around a year ago but this feels slightly different as it does not have a spinning quality. NIHSS 0. No focal strength or sensory deficits, no cranial nerve deficits. Due to difficulty walking and concern for possible basilar CVA patient was recommended for inpatient monitoring, MRI, and PT/OT evaluation. I discussed with patient as she notes that her dizziness occurred mostly when trying to walk and sitting up from bed although does not clearly think this was with a spinning quality. She has significant sinus congestion and still feels poorly from COVID. She has a history of IgG deficiency for which she has declined IVIG in the past. Suspect most likely etiology for her dizziness is labyrinthitis,? Prolonged COVID symptoms if immune deficient. Will check immunoglobulin levels and if low discussed with heme-onc for possible IVIG infusion. Agree with MRI evaluation as she does not clearly have a vertiginous quality to her dizziness and CVA is within the differential, although less likely and she has no other neurologic symptoms on assessment. Agree with assessment and management above. PG Care Time/CCT Total # of Minutes Spent Total Time Spent with Patient: Total time spent is greater than 50% in coordination of care (as documented) at patient's floor/unit and/or counseling patient: [place] [address] INT INP/OBS CARE MIN Patient Type Established Medical Decision Making High Complexity Diagnoses Dizziness R42 Stroke-like symptoms R29.90 Hypogammaglobulinemia D80.1
[2024-05-27] MEDS ORDERED: MECLIZINE 12.5 MG TAB PO PRN (16:56)
--- OUTSIDE RECORDS SUMMARY | 2024-05-27 17:57 | External Medical Summary | Summary of Care ---
Author Name Unknown Organization [facility] Address [address] [place] [address] Phone [phone] Care Team Providers Care Coordinator Cardiopulmonary Services Name Role Phone Sheng Hamilton MD Primary Care Provid er Reason for Visit * Reason Comments Outpatient Testing Encounter Details Date Type Department Care Team (Late st Contact Info) Description 05/22/2024 8:30 AM EST Laboratory Laboratory, [facility] [address] [facility] [id number] [facility] [address] [facility] [place] [id number] Hypertension goal BP (blood pressure) < 140/80 Allergies Active Allergy Reactions Criticality Noted Date Comments Erythromycin 02/07/2022 Nitrofurantoin 02/07/2022 Iodinated Contrast Media 02/07/2022 Isoflurane 02/07/2022 Liver issue Sulfa Antibiotics 03/18/2023 Other Reaction(s): Dry Mouth pt states dry mouth as reaction, no allergy Vancomycin 02/07/2022 documented as of this encounter (statuses as of 05/22/2024) Medications Tolnaftate 1 % External Solution Apply topically to affected area daily. Active Multi-Vitamin Oral Tablet Take 1 Tablet by mouth in the morning. Active Synthroid 75 MCG Oral Tablet Take 1 Tablet by mouth in the morning. Active Vitamin D3 125 MCG (5000 UT) Oral Capsule Take 2,000 mg by mouth once a day on Saturday, Saturday, and Saturday only. Active Xlear Sinus Care [place] Nasal Solution Administer into nostril. Active Probiotic Daily Oral Capsule Take 1 Capsule by mouth in the morning. Active Losartan Potassium 25 MG Oral Tablet (Cozaar)Indicat ions:Hypertensi on goal BP (blood pressure) < 140/80 Take 1 Tablet by mouth in the morning and 1 Tablet before bedtime. 180 Tablet 3 5 Active documented as of this encounter (statuses as of 05/22/2024) Active Problems No known active problems documented as of this encounter (statuses as of 05/22/2024) Immunizations Name Administration Dates Next Due TDAP (age 10 and older)(Boostrix) 07/29/2022 documented as of this encounter Social History Tobacco Use Types Packs/Day Years Used Date Smoking Tobacco: Never Smokeless Tobacco: Never Utilities Answer Date Recorded Do you have trouble paying y our heating, water, or electric bill? (Adult - for ages 18 years and over) Not on file 10/15/2023 Is your family able to pay t he heat, water, or electric bill? (Household - for ages 0-17 years) Not on file 10/15/2023 Does your family have access to good internet? (Household - for ages 0-17 years) Not on file 10/15/2023 Social Connections Answer Date Recorded How often do you feel lonely or isolated from those around you? (Adult - for ages 18 years and over) Not on file 10/15/2023 Comments No Sex and Gender Information Value Date Recorded Sex Assigned at Female 03/04/2023 8:37 AM EST Legal Sex Female 4:55 AM EST Gender Identity Female 03/04/2023 8:37 AM EST Sexual Orientation Straight 03/04/2023 8: 37 AM EST documented as of this encounter Plan of Treatment Upcoming Encounters Date Type Department Care Team (Late st Contact Info) Description 07/09/2024 8:30 AM EDT Office Visit Cardiology, [facility] [address] [place] [address] Ritu Mclaughlin CRNP [address] [place] [phone] Pending Results Name Type Priority Associated Diagnoses Date /Time BASIC METABOLIC PANEL Lab Routine Hypertension goal BP (blood pressure) < 140/80 05/22/2024 8:38 AM EST Health Maintenance Due Date Last Done Comments Depression Screening 1962 Hepatitis C Screening 1968 DXA Scan 2013 TSH 03/18/2024 03/18/2023, 05/1999, 02/10/1999, Additional history exists DTap/Tdap Vaccines (2 - Td or Tdap) 07/29/2032 07/29/2022 Zoster Vaccines Completed 04/27/2019, 02/06/2019 Pneumococcal Vaccine: 50+ Years Completed 12/24/2022, 09/09/2014, 04/17/2010 COVID-19 Vaccine Completed 12/24/2023, , 01/10/2023, Additional history exists Influenza Vaccine (FLU shot) Completed , 01/26/2023, 01/26/2023, Additional history exists HPV (Gardasil) Vaccine Aged Out No lo nger eligible based on patient's age to complete this topic Hepatitis B Vaccine Aged Out No longe r eligible based on patient's age to complete this topic MENINGOCOCCAL (MENACTRA/MENVEO) Aged Out No longer eligible based on patient's age to complete this topic documented as of this encounter Medical Devices Not on filedocumented as of this encounter Visit Diagnoses Diagnosis Hypertension goal BP (blood pressure) < 140/80 Unspecified essential hypertension documented in this encounter Care Teams Coordinator Cardiopulmonary Services Relationship Specialty Start Date End Date Sheng Hamilton MD [address] [id number] PCP - General Internal Medicine 02/05/22 documented as of this encounter
--- OUTSIDE RECORDS SUMMARY | 2024-05-27 17:57 | External Medical Summary | Continuity of Care Document ---
Author Name Unknown Organization [facility] [id number] [place] [address] [phone] Care Team Providers Care Sql Server Bi Developer Name Role Phone Sheng Hamilton Primary Care Physician [phone] [id number] Date(s): 05/20/24 - 05/20/24 [facility] [place] [facility] [place] [facility] [address] [place] [address] Encounter Diagnosis Laceration of hand, right(Discharge Diagnosis) - 05/20/24 Discharge Disposition: Home or Self Care Attending Physician: TYREE Pérez, Rea Allergies, Adverse Reactions, Alerts Substance Criticality Severity Reaction Reaction Severity Status furadantin fever Active erythromycin unknown Active vancomycin 1 renal insufficiency Active isoflurane Unable to assess criticality Mild elevated liver enzymes Active sulfa drugs 2 Dry Mouth Active inhalation anesthetics elevated liver enzymes Active IVP dye 3, 4 experienced epi sode of acute renal failure see note Active 1allergy to vancomycin is questionable per pt 2pt states dry mouth as reaction, no allergy 3Hydrate pt before and after with IV bag 4pt experienced episode of acute renal failure due to multiple CT scans with contrast in short time period in 2005, tolerated later contrast without reaction in 2009 Immunizations Given and Recorded Vaccine Date Status Refusal Reason influenza virus vaccine, inactivated 01/24/24 Gilbert rded influenza virus vaccine, inactivated 01/26/23 Gilbert rded influenza virus vaccine, inactivated 01/18/22 Gilbert rded influenza virus vaccine, inactivated 01/11/20 Give n influenza virus vaccine, inactivated 01/23/19 Give n influenza virus vaccine, inactivated 01/28/18 Give n influenza virus vaccine, inactivated 02/18/17 Give n influenza virus vaccine, inactivated 12/29/11 Gilbert rded influenza virus vaccine, inactivated 01/27/11 Gilbert rded influenza virus vaccine, inactivated 01/27/10 Gilbert rded influenza virus vaccine, inactivated 02/27/09 Gilbert rded SARS-CoV-2 (COVID-19) mRNA-vacc - [id number] 12/24/23 Recorded SARS-CoV-2 (COVID-19) mRNA-vacc - [id number] 01/14/23 Recorded RSV Vaccine Unspecified 02/08/23 Recorded SARS COVID Vaccine Unspecified 01/10/23 Recorded pneumococcal 20-valent conjugate vaccine 12/24/22 Given SARS-CoV-2 mRNA (tozinameran 5y-11y) 08/16/22 Gilbert rded SARS-CoV-2 mRNA (tozinameran 5y-11y) 01/05/22 Gilbert rded tetanus/diphtheria/pertuss, acel (Tdap) 07/29/22 R ecorded tetanus/diphtheria/pertuss, acel (Tdap) 01/14/15 G iven SARS-CoV-2 (COVID-19) mRNA-1273 vaccine 1 07/27/21 Recorded SARS-CoV-2 (COVID-19) mRNA-1273 vaccine 12/15/20 R ecorded SARS-CoV-2 (COVID-19) mRNA-1273 vaccine 2 12/14/20 Recorded SARS-CoV-2 (COVID-19) mRNA-1273 vaccine 06/22/20 R ecorded SARS-CoV-2 (COVID-19) mRNA-1273 vaccine 3 05/20/20 Recorded zoster vaccine, inactivated 4 04/27/19 Given zoster vaccine, inactivated 5 02/06/19 Given pneumococcal 13-valent vaccine 09/09/14 Given tetanus toxoids-diphtheria, Td (Adult) 06/29/10 Re corded tetanus toxoids-diphtheria, Td (Adult) 04/29/96 Re corded pneumococcal 23-valent vaccine 04/17/10 Recorded 1Result Comment: [facility] [place] [facility] 2Result Comment: #3 [facility] 3Result Comment: 2020-09-30: Historical information-source unspecified 4Result Comment: [id number] exp 07/02/21 5Early/Late Reason: Other : appt was in afternoon Medications Albuterol (Eqv-ProAir HFA) 90 mcg/inh inhalation aerosol Start: 09/16/23 3:35:00 PM EDT, 2 puff, inhaled, q6h, Disp# 6.7 g, Refills: 9, PRN: shortness of breath, Pharmacy: [facility]/pharmacy #[id number] Start Date: 09/16/23 Stop Date: 07/12/24 Status: Ordered cefuroxime 500 mg oral tablet Start: 03/30/24 3:22:00 PM EST, 1 tab, PO, bid Start Date: 03/30/24 Stop Date: 04/06/24 Status: Ordered ciclopirox 8% topical solution Start: 07/11/23 1:41:00 PM EDT, See Instructions, Disp# 6.6 mL, Refills: 1, USE TO PAINT TO AFFECTEDTOENAILS NIGHTLY., Pharmacy: [id number] Start Date: 07/11/23 Status: Ordered Kerydin 5% topical solution Start: 09/12/23 10:01:00 AM EDT, 1 appl, topical, Daily, Disp# 10 mL, Refills: 6, Apply to toenails of bilateral feet once per day for at least 6 months Start Date: 09/12/23 Stop Date: 02/19/30 Status: Ordered Kerydin 5% topical solution Start: 03/16/24 8:57:00 AM EST, 1 appl, topical, Daily, Disp# 10 mL, Refills: 6, Ply to affected toenails once per day for 6 months Start Date: 03/16/24 Stop Date: 08/24/30 Status: Ordered losartan 25 mg oral tablet Start: 03/20/23 11:03:00 AM EST, 1 tab, PO, Daily Start Date: 03/20/23 Stop Date: 04/19/23 Status: Ordered multivitamin Start: 04/20/13 1:21:00 PM EST, 1 tab, PO, bid, Note to Pharmacy: [employer]itarian Capsules Start Date: 04/20/13 Status: Ordered ondansetron 4 mg oral tablet, disintegrating Start: 03/30/24 3:22:00 PM EST, 1 tab, PO, bid Start Date: 03/30/24 Stop Date: 04/02/24 Status: Ordered Probiotic Synergy Start: 09/09/14 2:00:00 PM EDT, Probiotic Synergy, 1 cap, PO, After dinner, Note to Pharmacy: Contains 5 billiion cfu Start Date: 09/09/14 Status: Ordered Synthroid 50 mcg (0.05 mg) oral tablet Start: 04/07/24 7:48:00 AM EST, See Instructions, Disp# 24 tab, 1 tablet every Saturday and Saturday,along with the 75ug dose M-, Pharmacy: [facility] Start Date: 04/07/24 Status: Ordered Synthroid 75 mcg (0.075 mg) oral tablet Start: 03/24/24 10:31:00 AM EST, 1 tab, PO, Daily, Disp# 90 tab, Refills: 3, Brand Medically Necessary, Pharmacy: [facility] Start Date: 03/24/24 Status: Ordered triamcinolone 0.1% topical cream Start: 09/19/23 3:10:00 PM EDT, 1 appl, topical, bid, Disp# 30 g, Refills: 3, To red rash on legs BID PRN, Pharmacy: [facility] Start Date: 09/19/23 Stop Date: 11/14/23 Status: Ordered Vitamin D3 50 mcg (2000 intl units) oral capsule Start: 11/26/23 4:31:00 PM EDT, 1 cap, PO, Daily, Disp# 30 cap, Refills: 1, Pharmacy: [facility] [id number] Start Date: 11/26/23 Status: Ordered Xclear nasal spray Start: 11/21/21 10:47:00 AM EDT, Xclear nasal spray, PRN nasal congestion Start Date: 11/21/21 Status: Ordered Mental Status 05/20/24 Barriers to Learning one year None evide nt Mandatory Health Literacy Documentation Yes Health Literacy Communication Barriers N ever Primary Language Maltese Problem List Condition Confirmation Course Effective Dates Status Health Status Informant Abdominal pain Confirmed Active Labral tear of hip joint Confirmed Active Acute and chronic cholecystitis Confirmed Stable Active Counseled about COVID-19 virus infection Confirmed Active Allergy status to other drugs, medicaments and biological substances Confirmed Active ANEMIA Confirmed Active ANXIETY Confirmed Active OA (osteoarthritis) of foot Confirmed Active Arthritis of carpometacarpal (CMC) joint of both thumbs Confirmed Active CMC arthritis Confirmed Active Xerosis cutis Confirmed Active Asthma Confirmed Active Back pain Confirmed Active Nevus of back Confirmed Active Multiple nevi Confirmed Active Arthritis of both feet Confirmed Active Fluctuating blood pressure Confirmed Active Cholecystectomy Confirmed Active Chronic diarrhea Confirmed Active Chronic sinusitis Confirmed Active Chronic rhinitis Confirmed Active CMC - Carpometacarpal joint Confirmed Active Acquired primary hypogammaglobulinemia Confirmed Active CVID (common variable immunodeficiency) Confirmed Active Hammer toe Confirmed Active Hallux valgus Confirmed Active Cramp in foot Confirmed Active D&C - Dilatation and curettage Confirmed Active Deviated septum Confirmed Active Diverticulosis Confirmed Active Medication dose changed Confirmed Active Medication dose changed Confirmed Active Dry skin Confirmed Active Eczema Confirmed Active Elevated blood pressure Confirmed Active Fatigue Confirmed Active Pain in both feet Confirmed Active Chronic GERD Confirmed Active GERD (gastroesophageal reflux disease) Confirmed Active History of DVT in adulthood Confirmed Active H/O: surgery Confirmed Active Hallux valgus, bilateral Confirmed Active Hammertoe, bilateral Confirmed Active Hand pain Confirmed Active Leg hematoma Confirmed Active Herpes labialis Confirmed Active Herpes simplex Confirmed Active Hip dysplasia 1 Confirmed Active Hip replacement 2 Confirmed Active History of drug allergy Confirmed Active History of bilateral mastectomy Confirmed Active History of bilateral breast cancer Confirmed Active History of vitamin D deficiency Confirmed Active Hyperlipemia Confirmed Active Hypertension Confirmed Active Hypogammaglobulinemia Confirmed Active Hypogammaglobulinemia Confirmed Active Hypothyroidism Confirmed Active Hypothyroidism Confirmed Active IgA deficiency Confirmed Active IgG deficiency Confirmed Active Immunosuppression Confirmed Active Left ear impacted cerumen Confirmed Active Elevated CA-125 Confirmed Active Itching Confirmed Active Lentigo Confirmed Active Liver function tests abnormal Confirmed Active Localized, primary osteoarthritis of the hand Confirmed Active Lung nodules Confirmed Active Bronchioloalveolar carcinoma - disorder Confirmed Active Lung cancer Confirmed Active Mild mitral regurgitation Confirmed Active Moderate persistent asthma Confirmed Active 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 Nasal congestion Confirmed Active Chronic neutropenia Confirmed Active Nonallergic rhinitis Confirmed Active Onychomycosis Confirmed Active Tinea unguium Confirmed Active Osteoarthritis Confirmed Active 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 Confirmed Active Osteoporosis Confirmed Active Left ear pain Confirmed Active Ovarian cyst Confirmed Active Medicare annual wellness visit, subsequent Confirmed Active Venous insufficiency Confirmed Active Pleural effusion Confirmed Active Pneumonia Confirmed Active Preventive measure Confirmed Active Bilateral breast cancer Confirmed Active Renal failure Confirmed Active Retention of urine Confirmed Active Rhinitis Confirmed Active Seasonal allergies Confirmed Active Seborrheic keratoses Confirmed Active Seborrheic keratosis Confirmed Active Solar purpura Confirmed Active Sigmoid diverticulosis Confirmed Active Sinusitis Confirmed Active Skin macule Confirmed Active Superficial thrombophlebitis Confirmed Active Superficial thrombophlebitis Confirmed Active Lateral meniscus tear Confirmed Active Telangiectasias Confirmed Active Telangiectasia Confirmed Active Thinning of skin Confirmed Active Thumb pain Confirmed Active Ulcer Confirmed Active UTI (urinary tract infection) 4 Confirmed 03/29/06 Active Vaginal dryness Confirmed Active Varicose vein Confirmed Active Varicose veins of lower limb Confirmed Active Varicosis Confirmed Active Weight disorder Confirmed Active 1mild on right 2total at [facility] [place], right 3severe 4pseudomonas Diagnosis Diagnosis Type Effective Dates Health Status Clinical Service Informant Laceration of hand, right Discharge Diagnosis 05/20/24 Procedures Procedure Date Related Diagnosis Body Site Status Cataract 1 03/2023 Completed X-ray of lumbar spine and sa croiliac joints 12/15/13 Completed Chest x-ray 11/26/13 Completed Wedge resection 2 04/07/13 Complet ed GSV ablation 2012 Completed DEXA 10/23/10 Completed revision of breast reconstruction 10/04/09 Completed bilateral masectomies 09/09/09 Com pleted pap smear 03/29/09 Completed DEXA 08/27/08 Completed mammogram 07/07/08 Completed pap smear 03/29/08 Completed right hip surgery 03/29/06 Complet ed laparoscopic cholecystectomy 06/12/04 Completed colonoscopy 04/29/04 Completed D&C 04/29/90 Completed D&C 04/29/72 Completed appendectomy Completed Arterial ligation 3 Compl eted Bilateral mastectomy Comp leted CA - Lung cancer 4 Comple herrera ex lap/ovarian cyst Compl eted ovarian cyst removal 5 Co mpleted tonsillectomy 6 Completed 1second eye done on 04/2023 2Left upper lung 3vein liigation / with microphlebectomy / L leg Nelly Reied 2012 4left upper 5age 11, with appendectomy 6as child Social History Social History Type Response Smoking Status Never smoked cigaret reynold Sex Female Sex Representation Female (finding) Patient Care team information Care Team Personnel Name: MD Alfonso, Sheng Coates Position: Physician - Internal Med Member Role: Lifetime Relationship Address: [address] [place] [address] [place] Name: MD Roldan Claudia J Position: Physician - Radiologist Member Role: Lifetime Relationship Address: [address] [place] [address] [place] Name: TYREE Campbell Lynn Position: Physician Sales Recruitment Specialist Exempt - Vasc Surg Member Role: Lifetime Relationship Address: [address] [place] [address] [place] Name: DOREEN Bolden Christina L Position: Physician - Podiatry Member Role: Lifetime Relationship Address: [address] [place] [address] Name: CHAMP Grace Sandra B Position: RN - Perioperative Member Role: Lifetime - never expires Address: [facility] [address] [place] [address] Name: DEBBY Corbin Denise E Position: DIRECTOR OF RETAIL MERCHANDISING - Outpt Schedule II Member Role: Lifetime - never expires Address: [facility] [address] [place] [address] [place] Care Team Related Persons Name: GORDO VELASQUEZ Name: ANGELIQUE LANE Name: MARY FELIZ
--- OUTSIDE RECORDS SUMMARY | 2024-05-27 17:57 | External Medical Summary | Summary of Care ---
Author Name Unknown Organization [facility] Address [address] [place] [address] Phone [phone] Care Team Providers Care Fund Director Name Role Phone Sheng Hamilton MD Primary Care Provid er Encounter Details Date Type Department Care Team (Late st Contact Info) Description 05/15/2024 Orders Only PATIENT PORTAL DO NOT DELETE THIS DEPT USED BY MICHELLE RUSSELL [id number] Allergies Active Allergy Reactions Criticality Noted Date Comments Erythromycin 02/07/2022 Nitrofurantoin 02/07/2022 Iodinated Contrast Media 02/07/2022 Isoflurane 02/07/2022 Liver issue Sulfa Antibiotics 03/18/2023 Other Reaction(s): Dry Mouth pt states dry mouth as reaction, no allergy Vancomycin 02/07/2022 documented as of this encounter (statuses as of 05/15/2024) Medications Tolnaftate 1 % External Solution Apply [...] and Saturday only. Active Xlear Sinus Care Warriormine Nasal Solution Administer into nostril. Active Probiotic Daily Oral Capsule Take 1 Capsule by mouth in the morning. Active Losartan Potassium 25 MG Oral Tablet (Cozaar)Indicat ions:Hypertensi on goal BP (blood pressure) < 140/80 Take 1 Tablet by mouth in the morning and 1 Tablet before bedtime. 180 Tablet 3 5 Active documented as of this encounter (statuses as of 05/15/2024) Active Problems No known active problems documented as of this encounter (statuses as of 05/15/2024) Immunizations Name Administration Dates Next Due TDAP [...] 07/09/2024 8:30 AM EDT Office Visit Cardiology, [facility] [address] [address] Ritu Mclaughlin CRNP [address] [place] [id number] Health Maintenance Due Date Last Done Comments Depression Screening 1960 Hepatitis C Screening 1966 DXA Scan 2013 TSH 03/18/2024 03/18/2023, /05/1999, 02/10/1999, Additional history exists DTap/Tdap Vaccines (2 [...] Not on filedocumented as of this encounter Care Teams Fund Director Relationship Specialty Start Date End Date Sheng Hamilton MD [address] [id number] PCP - General Internal Medicine 02/05/22 documented as of this encounter
--- OUTSIDE RECORDS SUMMARY | 2024-05-27 17:57 | External Medical Summary | Continuity of Care Document ---
Author Name Unknown Organization [facility] [address] [place] [id number] Care Team Providers Care K 9 Handler/ Deputy Name Role Phone Sheng Hamilton Primary Care Physician [phone] [id number] Date(s): 05/12/24 - 05/12/24 [facility] [address] [facility] [address] [place] [address] Encounter Diagnosis COVID-19(Discharge Diagnosis) - 05/12/24 Hypokalemia(Discharge Diagnosis) - 05/12/24 Hand laceration(Discharge Diagnosis) - 05/12/24 Left hand pain(Discharge Diagnosis) - 05/12/24 Hyponatremia(Discharge Diagnosis) - 05/12/24 Fatigue(Discharge Diagnosis) - 05/12/24 Discharge Disposition: Home or Self Care Attending Physician: MD Hamilton Stephen D Allergies, Adverse Reactions, Alerts Substance Criticality Severity Reaction Reaction Severity Status furadantin fever Active erythromycin unknown Active isoflurane Unable to assess criticality Mild elevated liver enzymes Active inhalation anesthetics elevated liver enzymes Active vancomycin 1 renal insufficiency Active sulfa drugs 2 Dry Mouth Active IVP dye 3, 4 experienced epi [...] tolerated later contrast without reaction in 2009 Assessment and Plan Extracted from: Title:TeleHealth Visit Note Author:MD Hamilton Stephen D Date:05/12/24 1.COVID-19 Status post Paxlovidtreatment as well as albuterol. Patient was started on [id number] mg twice daily for 10 days by ER physician. She is slowly improving. Recommend repeatBMPto assess potassium sodium also check a CBC 2.Hypokalemia Plan as outlined above 3.Hand laceration Follow orthopedics 4.Left hand pain Follow-up orthopedics that she has a scheduled appointment in the next 3 days 5.Hyponatremia Repeat labs as outlined above 6.Fatigue Secondary to COVID-19 infection Ambulatory Discharge Readiness Documentation was completed utilizing speech voice recognition software " SureWaves". Please excuse grammatical errors, random word insertions and incomplete sentences that may occur due to ambient noise and hardware issues. Thank you. Total time spent with the patient was 15 minutes, including coordinating care and >50% for counseling of all medical conditions outlined above in assessment and plan. Medication Reconciliation Active Problem: Diagnoses U07.1 E87.6 S61.419A M79.642 E87.1 R53.83 Patient Education Orders 2 Complete Blood Count Request Immediate Comprehensive Metabolic Panel Request Immediate Charges 92365 Video Visit Est Pt Lvl 2 Ordering Provider: MD Alfonso, Sheng Coates Special Instructions: 10-19 Mins Immunizations Given and Recorded Vaccine Date Status [...] 02/27/09 Gilbert rded SARS-CoV-2 (COVID-19) mRNA-vacc - [id number] 12/24/23 Recorded SARS-CoV-2 (COVID-19) mRNA-vacc - [id number] 01/14/23 Recorded RSV Vaccine Unspecified 02/08/23 Recorded [...] 1Result Comment: [facility] [place] 2[facility] Comment: [facility] 3Result Comment: 2020-09-30: Historical information-source unspecified 4Result Comment: [id number] exp 07/02/21 5Early/Late Reason: Other : appt was in afternoon Medications Albuterol (Eqv-ProAir HFA) 90 mcg/inh inhalation aerosol Start: 09/16/23 3:35:00 PM EDT, 2 puff, inhaled, q6h, Disp# 6.7 g, Refills: 9, PRN: shortness of breath, [facility]acy[id number] Start Date: 09/16/23 Stop Date: 07/12/24 Status: Ordered cefuroxime 500 mg oral tablet Start: 03/30/24 3:22:00 PM EST, 1 tab, PO, bid Start Date: 03/30/24 Stop Date: 04/06/24 Status: Ordered ciclopirox 8% topical solution Start: 07/11/23 1:41:00 PM EDT, See Instructions, Disp# 6.6 mL, Refills: 1, USE TO PAINT TO AFFECTEDTOENAILS NIGHTLY., Pharmacy: [id number] Start Date: 07/11/23 Status: Ordered Kerydin 5% [...] Saturday and Saturday,along with the 75ug dose M-F, Pharmacy: [facility] Start Date: 04/07/24 Status: Ordered Synthroid 75 mcg (0.075 mg) oral tablet Start: 03/24/24 10:31:00 AM EST, 1 tab, PO, Daily, Disp# 90 tab, Refills: 3, Brand Medically Necessary, Pharmacy: [facility] Start Date: 03/24/24 Status: Ordered triamcinolone 0.1% topical cream Start: 09/19/23 3:10:00 PM EDT, 1 appl, topical, bid, Disp# 30 g, Refills: 3, To red rash on legs BID PRN, Pharmacy: [facility] Start Date: 09/19/23 Stop Date: 11/14/23 Status: Ordered Vitamin D3 50 mcg (2000 intl units) oral capsule Start: 11/26/23 4:31:00 PM EDT, 1 cap, PO, Daily, Disp# 30 cap, Refills: 1, Pharmacy: [id number] Start Date: 11/26/23 Status: Ordered Xclear nasal spray Start: 11/21/21 10:47:00 AM EDT, Xclear nasal spray, PRN nasal congestion Start Date: 11/21/21 Status: Ordered Problem List Condition Confirmation Course Effective Dates [...] Confirmed Active 1mild on right 2total at [facility] right 3severe 4pseudomonas Diagnosis Diagnosis Type Effective Dates Health Status Cl inical Service Informant COVID-19 Discharge Diagnosis 05/12/24 Non-Specified Hypokalemia Discharge Diagnosis 05/12/24 Non-Specified Hand laceration Discharge Diagnosis 05/12/24 Non-Specified Left hand pain Discharge Diagnosis 05/12/24 Non-Specified Hyponatremia Discharge Diagnosis 05/12/24 Non-Specified Fatigue Discharge Diagnosis 05/12/24 Non-Specified Procedures Procedure Date Related Diagnosis Body Site [...] upper 5age 11, with appendectomy 6as child Results Most recent to oldest [Reference Range]: 1 Ca Outside Ref Range (05/08/24 8:58 AM) AST Outside 34 unit/L (05/08/24 8:58 AM) ALT Outside 28 unit/L (05/08/24 8:58 AM) Alk Phos Outside 48 unit/L (05/08/24 8:58 AM) WBC Outside Ref Range 10^3/uL (05/08/24 8:58 AM) Na Outside Ref Range (05/08/24 8:58 AM) Hgb Outside Ref Range g/dL (05/08/24 8:58 AM) Hct Outside Ref Range % (05/08/24 8:58 AM) BUN Outside Ref Range (05/08/24 8:58 AM) Cl- Outside Ref Range (05/08/24 8:58 AM) Cret Outside Ref Range (05/08/24 8:58 AM) K Outside Ref Range (05/08/24 8:58 AM) Gluc Outside Ref Range (05/08/24 8:58 AM) INR Outside Ref Range (05/08/24 8:58 AM) Alk Phos Outside Ref Range (05/08/24 8:58 AM) ALT Outside Ref Range (05/08/24 8:58 AM) AST Outside Ref Range (05/08/24 8:58 AM) TBili Outside Ref Range (05/08/24 8:58 AM ) CO2 Outside 26 (05/08/24 8:58 AM) Platelets Outside 175 (05/08/24 8:58 AM) Platelets Outside Ref Range 10^3/uL (05/08/24 8:58 AM) Albumin Outside 4.4 (05/08/24 8:58 AM) Albumin Outside Ref Range (05/08/24 8:58 AM) Total Protein Outside 6.4 (05/08/24 8:58 AM) Total Protein Outside Ref Range (05/08/24 8:58 AM) Est GFR, Race Not Specified Outside 95.7 9 (05/08/24 8:58 AM) PT Outside 10.6 seconds (05/08/24 8:58 AM) PT Outside Ref Range (05/08/24 8:58 AM) WBC Outside 5.97 (05/08/24 8:58 AM) Hgb Outside 12.2 (05/08/24 8:58 AM) Hct Outside 35.4 (05/08/24 8:58 AM) INR Outside 1.0 (05/08/24 8:58 AM) Na Outside 132 (05/08/24 8:58 AM) K Outside 3.2 (05/08/24 8:58 AM) Cl- Outside 98 (05/08/24 8:58 AM) BUN Outside 9 (05/08/24 8:58 AM) Ca Outside 8.6 (05/08/24 8:58 AM) Cret Outside 0.53 (05/08/24 8:58 AM) MCV Outside 90.3 (05/08/24 8:58 AM) MCV Outside Ref Range fL (05/08/24 8:58 AM) Gluc Outside 108 (05/08/24 8:58 AM) TBili Outside 0.6 (05/08/24 8:58 AM) Social History Social History Type Response Smoking Status Never smoked cigaret reynold Sex Female Sex Representation Female (finding) Medicine Outpt Note * MD Alfonso, Sheng Coates: PERFORM, MODIFY, MODIFY Event Display: Medicine Outpt Note Authored Date: [id number] TeleHealth Visit Note I have confirmed the patients name and date of . The patient has consented to this service,and I have advised the patient that this is a billable visit for which they may be subject to a copay. The patient initiated this visit after they were informed of the availability of TeleHealth for this medically necessary visit. I am located at my office. The patient is located at home. This visit was conducted via live audio/video technology via Angelfish. History of Present Illness Very pleasant 74-year-old female with past medical history as outlined below presents as an acute visitafter recently testing positive for COVID-19 infection4 days prior. 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 COVID-19 infection. Patient reportsdeveloping symptomsof myalgias fatiguelow-grade fevers and [facility] and tested positive for COVID-19 infection. She also was informed that she reason on examination and questionable pneumonia. Labs also noted hypo and hypokalemiaand hyponatremia. Patientreceived potassium supplementsshe recalls in the emergency roomas well as IV fluidsand was discharged home on albuterolas well as cefdinir 300 mg 1 pill twice daily for 10 days. She also reports she was hoarsethroughout the visit and in the process of walking to the emergency room she fell and injured both hands suffered a laceration to her right hand requiring stitches. Today she continues to complain of left hand painand has a scheduled appointment orthopedics in the next 3 days. Overallshe is slowly improving but still has some fatigue. From prior office note: 03/24/24L Past medical history as outlined below: 1. History of breast carcinoma diagnosed 2009 status post bilateral mastectomy with postoperativeinfection that is complication 2. Bronchoalveolar lung carcinoma diagnosed 2012 status post left video- assisted thorascopic wedge resection in 2012 follows at [facility] 3. Chronic hypogammaglobinemia diagnosed in 2009 follows allergy immunology with chronically low IgG and IgA levels 4. hypothyroidism 5. Irritable bowel syndrome diarrhea predominant 6. History osteoporosis with T-score -2.7 on bone density scan in 1998 status post Fosamax therapy x 6 years 7. Severe osteoarthritis of the right hip status post right hip replacement 2005 follows with orthopedics 8. History of chronic elevated CA125 of unclear etiology follows with RN L AND D at [facility] 7. History of chronic right ovarian cyst described as adnexal mass. 8. History of family history of colon cancer questionable involving her mother who had bladder cancer as well. 9. Chronic anxiety 10. History of hepatitis idiosyncratic related to medication from inhalation anesthetic postoperatively with resolution of elevated liver enzymes. Physical Exam Pt. appears comfortable in no acute distress. Assessment/Plan 1.COVID-19 Status post Paxlovidtreatment as well as albuterol. Patient was started on [id number] mg twice daily for 10 days by ER physician. She is slowly improving. Recommend repeatBMPto assess potassium sodium also check a CBC 2.Hypokalemia Plan as outlined above 3.Hand laceration Follow orthopedics 4.Left hand pain Follow-up orthopedics that she has a scheduled appointment in the next 3 days 5.Hyponatremia Repeat labs as outlined above 6.Fatigue Secondary to COVID-19 infection Ambulatory Discharge Readiness Documentation was completed utilizing speech voice recognition software " SureWaves". Please excuse grammatical errors, random word insertions and incomplete sentences that may occur due to ambient noise and hardware issues. Thank you. Total time spent with the patient was 15 minutes, including coordinating care and >50% for counseling of all medical conditions outlined above in assessment and plan. Medication Reconciliation Active Problem: Diagnoses U07.1 E87.6 S61.419A M79.642 E87.1 R53.83 Patient Education Orders 2 Complete Blood Count Request Immediate Comprehensive Metabolic Panel Request Immediate Charges 30993 Video Visit Est Pt Lvl 2 Ordering Provider: MD Alfonso, Sheng Coates Special Instructions: 10-19 Mins Problem List/Past Medical History Ongoing Abdominal pain Acquired primary hypogammaglobulinemia Acute and chronic cholecystitis Allergy status to other drugs, medicaments and biological substances ANEMIA ANXIETY Arthritis of both feet Arthritis of carpometacarpal (CMC) joint of both thumbs Asthma Back pain Bilateral breast cancer Bronchioloalveolar carcinoma - disorder Cholecystectomy Chronic diarrhea Chronic GERD Chronic neutropenia Chronic rhinitis Chronic sinusitis CMC - Carpometacarpal joint CMC arthritis Counseled about COVID-19 virus infection Cramp in foot CVID (common variable immunodeficiency) D&C - Dilatation and curettage Deviated septum Diverticulosis Dry skin Eczema Elevated blood pressure Elevated CA-125 Fatigue Fluctuating blood pressure GERD (gastroesophageal reflux disease) H/O: surgery Hallux valgus Hallux valgus, bilateral Hammer toe Hammertoe, bilateral Hand pain Herpes labialis Herpes simplex Hip dysplasia Hip replacement History of bilateral breast cancer History of bilateral mastectomy History of drug allergy History of DVT in adulthood History of vitamin D deficiency Hyperlipemia Hypertension Hypogammaglobulinemia Hypogammaglobulinemia Hypothyroidism Hypothyroidism IgA deficiency IgG deficiency Immunosuppression Itching Labral tear of hip joint Lateral meniscus tear Left ear impacted cerumen Left ear pain Leg hematoma Lentigo Liver function tests abnormal Localized, primary osteoarthritis of the hand Lung cancer Lung nodules Medicare annual wellness visit, subsequent Medication dose changed Medication dose changed Mild mitral regurgitation Moderate persistent asthma Mcnamara's neuroma of left foot Multiple nevi Nasal congestion Nevus of back Nonallergic rhinitis OA (osteoarthritis) of foot Onychomycosis Osteoarthritis Osteoarthritis resulting from right hip dysplasia Osteoporosis Ovarian cyst Pain in both feet Pleural effusion Pneumonia Preventive measure Renal failure Retention of urine Rhinitis Seasonal allergies Seborrheic keratoses Seborrheic keratosis Sigmoid diverticulosis Sinusitis Skin macule Solar purpura Superficial thrombophlebitis Superficial thrombophlebitis Telangiectasia Telangiectasias Thinning of skin Thumb pain Tinea unguium Ulcer UTI (urinary tract infection) Vaginal dryness Varicose vein Varicose veins of lower limb Varicosis Venous insufficiency Weight disorder Xerosis cutis Resolved Abscess Acute urinary tract infection Biopsy of breast Breast cancer Bronchitis Bug bite Chest pain Osteomyelitis Procedure/Surgical History Cataract| Service Date: 03/2023X-ray of lumbar spine and sacroiliac joints| Service Date: 12/15/2013Chest x-ray| Service Date: 11/26/2013Wedge resection| Service Date: 04/07/2013GSV ablation| Service Date: 2012DEXA| Service Date: 10/23/2010revision of breast reconstruction| Service Date: 10/04/2009ilateral masectomies| Service Date: 09/09/2009pap smear| Service Date: 03/29/2009DEXA| Service Date: 08/27/2008mammogram| Service Date: 07/07/2008pap smear| Service Date: 03/29/2008right hip surgery| Service Date: 03/29/2006laparoscopic cholecystectomy| Service Date: 06/12/2004 colonoscopy| Service Date: 04/29/2004 D&C| Service Date: 04/29/1990 D&C| Service Date: 04/29/1972 ovarian cyst removal tonsillectomy appendectomy ex lap/ovarian cystCA - Lung cancerArterial ligationBilateral mastectomy Medications albuterol(Albuterol (Eqv-ProAir HFA) 90 mcg/inh inhalation aerosol), 2 puff, inhaled, q6h, PRN, 9 refills cefuroxime(cefuroxime 500 mg oral tablet), 500 mg= 1 tab, PO, bid cholecalciferol(Vitamin D3 50 mcg (2000 intl units) oral capsule), 1 cap, PO, Daily ciclopirox topical(ciclopirox 8% topical solution), See Instructions levothyroxine(Synthroid 75 mcg (0.075 mg) oral tablet), 75 mcg= 1 tab, PO, Daily, 3 refills levothyroxine(Synthroid 50 mcg (0.05 mg) oral tablet), See Instructions losartan(losartan 25 mg oral tablet), 25 mg= 1 tab, PO, Daily multivitamin, 1 tab, PO, bid ondansetron(ondansetron 4 mg oral tablet, disintegrating), 4 mg= 1 tab, PO, bid tavaborole topical(Kerydin 5% topical solution), 1 appl, topical, Daily, 6 refills tavaborole topical(Kerydin 5% topical solution), 1 appl, topical, Daily, 6 refills triamcinolone topical(triamcinolone 0.1% topical cream), 1 appl, topical, bid, 3 refills unknown medication(Probiotic Synergy), 1 cap, PO, After dinner unlisted medication(Xclear nasal spray) Allergies isoflurane (Mild)elevated liver enzymes IVP dyeexperienced episode of acute renal failure, see note erythromycinunknown furadantinfever inhalation anestheticselevated liver enzymes sulfa drugsDry Mouth vancomycinrenal insufficiency Social History Smoking Status Never smoked cigarettes Alcohol - Low Risk Use:Current Type:Wine Frequency:1-2 times per week - Comments: Very small amounts of wine Exercise - Regular exercise Home/Environment - No Risk Substance Abuse - Denies Substance Abuse Tobacco - Denies Tobacco Use Family History Colon cancer..: Unknown. Health Status Family Member(s) Immunizations Vaccine Date Status Hepatitis B Vaccine Unspecified - Not Given Comments : Already received vaccine influenza virus vaccine, inactivated 01/24/2024 Recorded SARS-CoV-2 (COVID-19) mRNA-vacc - [id number] 12/24/2023 Recorded RSV Vaccine Unspecified 02/08/2023 Recorded influenza virus vaccine, inactivated 01/26/2023 Recorded SARS-CoV-2 (COVID-19) mRNA-vacc - [id number] 01/14/2023 Recorded SARS COVID Vaccine Unspecified 01/10/2023 Recorded pneumococcal 20-valent conjugate vaccine 12/24/2022 Given SARS-CoV-2 mRNA (tozinameran 5y-11y) 08/16/2022 Recorded tetanus/diphtheria/pertuss, acel (Tdap) 07/29/2022 Recorded influenza virus vaccine, inactivated 01/18/2022 Recorded SARS-CoV-2 mRNA (tozinameran 5y-11y) 01/05/2022 Recorded SARS-CoV-2 (COVID-19) mRNA-1273 vaccine 07/27/2021 Recorded Comments : [facility] [place] SARS-CoV-2 (COVID-19) mRNA-1273 vaccine 12/15/2020 Recorded SARS-CoV-2 (COVID-19) mRNA-1273 vaccine 12/14/2020 Recorded Comments : [facility] SARS-CoV-2 (COVID-19) mRNA-1273 vaccine 06/22/2020 Recorded SARS-CoV-2 (COVID-19) mRNA-1273 vaccine 05/20/2020 Recorded Comments : 2020-09-30: Historical information-source unspecified influenza virus vaccine, inactivated 01/11/2020 Given zoster vaccine, inactivated 04/27/2019 Given Comments : [id number] exp 07/02/21 zoster vaccine, inactivated 02/06/2019 Given Comments : Other : appt was in afternoon influenza virus vaccine, inactivated 01/23/2019 Given influenza virus vaccine, inactivated 01/28/2018 Given influenza virus vaccine, inactivated 02/18/2017 Given tetanus/diphtheria/pertuss, acel (Tdap) 01/14/2015 Given pneumococcal 13-valent vaccine 09/09/2014 Given influenza virus vaccine, inactivated 12/2011 Recorded influenza virus vaccine, inactivated 01/27/2011 Recorded tetanus toxoids-diphtheria, Td (Adult) 06/29/2010 Recorded pneumococcal 23-valent vaccine 04/17/2010 Recorded influenza virus vaccine, inactivated 01/27/2010 Recorded influenza virus vaccine, inactivated 02/27/2009 Recorded tetanus toxoids-diphtheria, Td (Adult) 04/29/1996 Recorded Recommendations Health Maintenance Pending(in the next year) OverDue Medicare Annual Wellness Visit due09/26/19and every 1year Due Adult Social Determinants of Health Screening due05/12/24Unknown Frequency Due In Future Adult Influenza Vaccine not due until10/27/24and every 1year Body Mass Index not due until03/25/25and every 366day Satisfied(in the past 1 year) Satisfied Adult COVID-19 Vaccination on12/24/23.Satisfied by DEBBY Núñez Martha J Adult Influenza Vaccine on01/24/24.Satisfied by MD Hamilton Stephen D Body Mass Index on03/24/24.Satisfied by Cece Bird Lipid Screening on03/18/24.Satisfied by Contributor_system, [email or web address] Electronic Signature on File Electronically Reviewed/Signed by: Sheng Hamilton MD Author Signature Dt/Tm:05/12/2024 05:38 PM Division of Internal Medicine [facility] Patient Care team information Care Team Personnel Name: MD Hamilton Stephen D Position: Physician - Internal Med Member Role: Lifetime Relationship Address: [address] [place] [address] [place] Name: MD Roldan Claudia J Position: Physician - Radiologist Member Role: Lifetime Relationship Address: [address] [place] [address] [place] Name: TYREE Campbell Lynn Position: Physician Operations Supervisor Exempt - Vasc Surg Member Role: Lifetime Relationship Address: [address] [address] [place] Name: DOREEN Bolden Christina L Position: Physician - Podiatry Member Role: Lifetime Relationship Address: [address] [address] [place] Name: CHAMP Grace Sandra B Position: RN - Perioperative Member Role: Lifetime - never expires Address: [facility] [address] [place] [address] [place] Name: DEBBY Corbin Denise E Position: ATMOSPHERIC PHYSICIST - Outpt Schedule II Member Role: Lifetime - never expires Address: [facility] [address] [place] [address] [place] Care Team Related Persons Name: GORDO VELASQUEZ Name: ANGELIQUE LANE Name: MARY FELIZ
--- OUTSIDE RECORDS SUMMARY | 2024-05-27 17:57 | External Medical Summary ---
Author Name Unknown Address Unknown Organization [facility] [address] [place] [id number] Laboratory Report Ordering Provider Test Date Status LITO BRUMFIELD 05/22/2024 08:38:18 Final Observation Date Value Abnormality Reference (Units ) Status BUN 05/22/2024 08:38:18 24 Above high normal 6-20 (mg/dL) Final Creatinine 05/22/2024 08:38:18 0.7 0.5-1.0 (mg/dL) Final Glomerular filtration rate/1.73 sq M.predicted [Volume Rate/Area] in Serum, Plasma or Blood by Creatinine-based formula (CKD-EPI) 05/22/2024 08:38:18 88 >=60 (mL/min) Final eGFR is calculated based on the CKD-EPI 2020 equation. Sodium 05/22/2024 08:38:18 139 135-146 (m mol/L) Final Potassium 05/22/2024 08:38:18 4.4 3.5-5.1 (m mol/L) Final Cl 05/22/2024 08:38:18 99 98-107 (mm ol/L) Final CO2 05/22/2024 08:38:18 27 22-32 (mmo l/L) Final Anion gap 05/22/2024 08:38:18 13 7-15 (mmol /L) Final Glucose 05/22/2024 08:38:18 66 Below low normal 70- 120 (mg/dL) Final Calcium 05/22/2024 08:38:18 9.3 8.4-10.2 ( mg/dL) Final Performing Location [facility] [address] [place] [id number]
--- OUTSIDE RECORDS SUMMARY | 2024-05-27 17:57 | External Medical Summary | Continuity of Care Document ---
Author Name Unknown Organization [facility] [id number] Address [address] [place] [phone] Care Team Providers Care Powerhouse Oiler Name Role Phone Sheng Hamilton Primary Care Physician [phone] [id number] Date(s): 05/14/24 - 05/14/24 [facility] Medicine [address] [place] [id number] Encounter Diagnosis Left wrist sprain(Discharge Diagnosis) - 05/14/24 Laceration of right hand(Discharge Diagnosis) - 05/14/24 Discharge Disposition: Home or Self Care Attending [...] 02/27/09 [facility] rded SARS-CoV-2 (COVID-19) mRNA-vacc - [id number] 12/24/23 Recorded SARS-CoV-2 (COVID-19) mRNA-vacc - [id number] 01/14/23 Recorded RSV Vaccine Unspecified 02/08/23 Recorded [...] 1Result Comment: [facility] [place] [facility] [place] 2Result Comment: #3 vaccine [facility] 3Result Comment: 2020-09-30: Historical information-source unspecified 4Result Comment: [id number] exp 07/02/21 5Early/Late Reason: Other : appt was in afternoon Medications Albuterol (Eqv-ProAir HFA) 90 mcg/inh inhalation aerosol Start: 09/16/23 3:35:00 PM EDT, 2 puff, inhaled, q6h, Disp# 6.7 g, Refills: 9, PRN: shortness of breath, Pharmacy: [facility]/pharmacy #[id number] Start Date: 09/16/23 Stop Date: 07/12/24 Status: Ordered cefuroxime 500 mg oral tablet Start: 03/30/24 3:22:00 PM EST, 1 tab, PO, bid Start Date: 03/30/24 Stop Date: 04/06/24 Status: Ordered ciclopirox 8% topical solution Start: 07/11/23 1:41:00 PM EDT, See Instructions, Disp# 6.6 mL, Refills: 1, USE TO PAINT TO AFFECTEDTOENAILS NIGHTLY., Pharmacy: [id number] Start Date: 07/11/23 Status: Ordered Kerydin 5% [...] Saturday,along with the 75ug dose M-, Pharmacy: [facility] Start Date: 04/07/24 Status: Ordered Synthroid 75 mcg (0.075 mg) oral tablet Start: 03/24/24 10:31:00 AM EST, 1 tab, PO, Daily, Disp# 90 tab, Refills: 3, Brand Medically Necessary, Pharmacy: [facility] Start Date: 03/24/24 Status: Ordered triamcinolone 0.1% topical cream Start: 09/19/23 3:10:00 PM EDT, 1 appl, topical, bid, Disp# 30 g, Refills: 3, To red rash on legs BID PRN, Pharmacy: [facility] Start Date: 09/19/23 Stop Date: 11/14/23 Status: Ordered Vitamin D3 50 mcg (2000 intl units) oral capsule Start: 11/26/23 4:31:00 PM EDT, 1 cap, PO, Daily, Disp# 30 cap, Refills: 1, Pharmacy: [id number] Start Date: 11/26/23 Status: Ordered Xclear nasal spray Start: 11/21/21 10:47:00 AM EDT, Xclear nasal spray, PRN nasal congestion Start Date: 11/21/21 Status: Ordered Mental Status 05/14/24 Barriers to Learning one year None evide [...] Confirmed [place] 1mild [place] [facility] [place] 3severe 4pseudomonas Diagnosis Diagnosis Type Effective Dates Health Status Clinical Service Informant Left wrist sprain Discharge Diagnosis 05/14/24 Laceration of right hand Discharge Diagnosis 05/14/24 Procedures Procedure Date Related Diagnosis Body Site Status Cataract 1 03/2023 Completed X-ray of lumbar spine and sa croiliac joints 12/15/13 Completed Chest x-ray 11/26/13 Completed Wedge resection 2 04/07/13 [facility] ed GSV ablation 2012 Completed DEXA 10/23/10 Completed revision of breast reconstruction 10/04/09 Completed bilateral masectomies 09/09/09 Com pleted pap smear 03/29/09 Completed DEXA 08/27/08 Completed mammogram 07/07/08 Completed pap smear 03/29/08 Completed right hip surgery 03/29/06 [facility] ed laparoscopic cholecystectomy 06/12/04 Completed colonoscopy 04/29/04 [...] Med Member Role: Lifetime Relationship Address: [address] [place] [address] [place] Name: MD Roldan Claudia J Position: Physician - Radiologist Member Role: Lifetime Relationship Address: [address] [place] [address] [place] Name: TYREE Campbell Lynn Position: Physician Food Safety Manager Exempt - Vasc Surg Member Role: Lifetime Relationship Address: [address] [place] [address] [place] Name: DOREEN Bolden Christina L Position: Physician - Podiatry Member Role: Lifetime Relationship Address: [address] [facility] [address] [place] [address], [place] [address] [place] Name: CHAMP Grace Sandra B Position: RN - Perioperative Member Role: Lifetime - never expires Address: [facility] [address] [place] [address] [place] Name: DEBBY Corbin Denise E Position: LINE APPLIANCE ASSEMBLER - Outpt Schedule II Member Role: Lifetime - never expires Address: [facility] [address] [place] [address] [place] Care Team Related Persons Name: GORDO VELASQUEZ Name: ANGELIQUE LANE Name: MARY FELIZ
[2024-05-27 17:59] LABS: Immunoglobulin G 542.2 mg/dl (635-1741); Immunoglobulin M 140.4 mg/dl (45-281)
--- NOTE | 2024-05-27 18:43 | CT Scan Report ---
EXAM: CT Chest Without Intravenous Contrast INDICATION: Right pulmonary nodule. TECHNIQUE: Axial computed tomography images of the chest without intravenous contrast. Sagittal and coronal reformatted images were created and reviewed. This CT exam was performed using one or more of the following dose reduction techniques: automated exposure control, adjustment of the mA and/or kV according to patient size, and/or use of iterative reconstruction technique. COMPARISON: No relevant prior studies available. FINDINGS: Limitations: None. Lungs and pleural spaces: There is a staple line with associated nodular and eccentrically calcified thickening left apex with the nodular area measuring 1.4 x 0.9 x 2.0 cm. There is mild scarring in the right lung apex. No bronchiectasis, honeycombing or reticulation. No pleural effusion or pneumothorax. Heart: No abnormality noted. Thyroid: No abnormality noted. Bones/joints: Degenerative changes noted in the scoliotic spine. No acute osseous abnormality noted. Old left rib deformity. No acute osseous abnormality. Soft tissues: No significant abnormality noted. Vasculature: Minimal atherosclerosis of the aorta. No aneurysm. Lymph nodes: No enlarged lymph nodes. Kidneys and ureters: Hyperdensity in the collecting system of each kidney typical of recent intravenous contrast injection. Simple right renal cyst/s. No simple cyst follow-up necessary. Left kidney appears normal. No renal stone, hydronephrosis or perinephric fluid. IMPRESSION: Eccentrically calcified nodular thickening along the staple line in the left upper lung. In the absence of a prior study to compare, consider PET/CT. ACT 112: Negative or not required by law. Electronically signed by Kassidy Ac 05-27-2024 6:43 PM
--- NOTE | 2024-05-27 19:58 | Magnetic Resonance Report ---
Exam(s): MRI HEAD Without Contrast EXAM: MR Head Without Intravenous Contrast CLINICAL HISTORY: Reason for exam: Dizziness, stroke-like symptoms. TECHNIQUE: Magnetic resonance images of the head/brain without intravenous contrast in multiple planes. COMPARISON: Same day CT head FINDINGS: Brain: No diffusion restriction to suggest acute cerebral ischemia. No acute intracranial hemorrhage. No mass-effect or shift. Proximal intracranial flow voids appear normal. Age-related parenchymal volume loss. Scattered punctate foci of FLAIR signal hyperintensity in the cerebral white matter in keeping with minimal chronic small vessel ischemic change. Ventricles: Unremarkable. No hydrocephalus. Bones/joints: Unremarkable. No acute fracture. Sinuses: Ethmoid air cell mucosal thickening with fluid levels in the left maxillary sinus and right sphenoid sinus. Mastoid air cells: Unremarkable as visualized. No mastoid effusion. Orbits: Lens replacements. IMPRESSION: 1. No diffusion restriction to suggest acute cerebral ischemia. 2. Ethmoid air cell mucosal thickening with fluid levels in the left maxillary sinus and right sphenoid sinus. Correlate for sinusitis. Electronically signed by: Yariel Diaz M.D. 05/27/24 19:58 PM
[2024-05-27] MEDS ORDERED: FAMOTIDINE 20 MG TAB PO PRN (20:18)
[2024-05-27] MEDS ORDERED: ACETAMINOPHEN 325 MG TAB PO PRN (20:18)
[2024-05-27] MEDS ORDERED: ALBUTEROL HFA 8 GM INHALER INH PRN (20:18)
[2024-05-27] MEDS ORDERED: FLUTICASONE PROPIONATE NA SPR 16 GM BTL PRN (20:18)
[2024-05-27] MEDS ORDERED: ONDANSETRON INJ 2 MG/ML 2 ML VIAL IV PRN (20:18)
[2024-05-28] MEDS: LEVOTHYROXINE SODIUM 75 MCG TABLET PO SCH (04:58)
[2024-05-28 06:56] LABS: Hematocrit (blood only) 32.9 % (37.0-47.0); Hemoglobin 11.3 g/dl (12.0-16.0); Mean Corpuscular Hemoglobin 30.4 pg (25.0-34.0); Mean Corpuscular Hgb Conc 34.3 g/dL (32.0-36.0); Mean Corpuscular Volume 88.4 fL (80.0-100.0); Mean Platelet Volume 9.5 fL (9.4-12.4); Platelet Count 303 K/uL (130-400); RDW Coefficient of Variation 13.4 % (11.5-14.5); RDW Standard Deviation 43.8 fL (36.4-46.3); Red Blood Count 3.72 M/uL (4.20-5.40); White Blood Count 4.21 K/ul (4.8-10.8)
[2024-05-28 07:20] LABS: BUN Creatinine Ratio 17.9 (10-20); Calcium 9.2 mg/dl (8.6-10.3); Creatinine Clr Calc Pharmacy 72.9 ml/min; Potassium 3.7 mmol/L (3.5-5.1)
[2024-05-28 07:35] VITALS: RESP 16
[2024-05-28 15:14] VITALS: PULSE 72; TEMP 98.2; O2SAT 95
--- NOTE | 2024-05-28 15:26 | Discharge Summary ---
Date of Service May 28, 2024 Admission HPI Per Admitting Provider Nunu is a 74-year-old female with PMH of HTN, hypothyroidism, IGG/IGA deficiency, bilateral mastectomy, breast cancer, lung cancer, and wedge resection of left lung in 2012. She presented on 05/27 for dizziness, vertigo, nausea, and chills that began around 0300 that morning. Patient recently had a COVID infection that was diagnosed on 05/08. She completed a course of Paxlovid on 05/12, and was also given Ceftin and an inhaler for possible pneumonia. 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 She went to bed last night feeling fine, however she woke this morning around 3 AM, and could not get out of bed because she was so dizzy. She tried to go to the bathroom, but had to hold onto the smith. Initially she thought she was dehydrated, and after being in the bathroom, she got to her recliner chair and tried to sip some Pedialyte. This dizziness lasted for approximately 3 hours, and was present at rest. She also has concerns, as her blood pressure has been really high this morning (she reports it was ~190/90). No strokelike symptoms appreciated (no slurred speech, facial droop, or unilateral deficits this morning). Patient did have a transient episode of vertigo around 1 year ago, but this felt differently. Patient lives by herself. Patient does have a history of low IgG and IgA levels, but does not receive gammaglobulin out of fear of blood clots. Patient is hypertensive at 150/79 at time of admission. ED course: Zofran 4 mg IV NSS 500 mL IV ROS: Patient endorses severe dizziness, chills, and nausea. Patient denies slurred speech, facial droop, unilateral deficits, fever, headache, ear pain, tinnitus, rashes, chest pain, chest palpitations, SOB, ORDOÑEZ, abdominal pain, vomiting, diarrhea, burning with urination, or changes in urinary/bowel habits. Admission Exam Per Admitting Provider General: no acute distress; anxious; non-toxic appearing; frail-appearing; cooperative; SpO2 98% on RA HEENT: normocephalic, atraumatic; no scleral icterus; PERRLA; vision and hearing grossly intact; patient demonstrates ability to raise eyebrows and smile without unilateral deficits Neck: supple; no lymphadenopathy; trachea midline; patient demonstrates ability to shrug shoulders against resistance and rotate neck without unilateral deficits Skin: warm, dry without signs of tenting; no cyanosis; no rashes, bruising, lesions, or erythema noted CV: chest wall NTP; RRR; S1/S2 normal; no murmurs/rubs/gallops; pulses intact and symmetric at radial, DP, and PT Lungs: no acute respiratory distress; symmetrical chest wall expansion; clear breath sounds across all lung carroll w/o adventitious sounds; no wheezing ABD: Soft, NTP; BS present; epigastric hernia noted; no rebound/guarding; no distention MSK: no tics or fasciculations; no edema noted in the LEs b/l, nonerythematous; 5/5 fisher oyster strength bilaterally; patient demonstrates ability to wiggle toes/plantarflex/dorsiflex bilaterally without unilateral deficits Neuro: A&Ox3; normal mood and affect; fluent speech; no focal deficits; patient reports sensation is intact and symmetric in the face/upper extremities/lower extremities bilaterally assessed via light touch Principal Diagnosis viral labyrinthitis Discharge Exam Gen: NAD, well-groomed, frail, overly anxious about potential health concerns HEENT: NCAT, PERRL, MMM CV: RRR, no m/r/g, S1/S2 normal Resp: CTAB, symmetrical chest rise, breathing non-labored Abd: Soft, NT/ND, +BS MSK: Full ROM, normal str, no gross deformities Skin: Warm, dry, no rashes; healing bruise w some scabbing on L knee Neuro: AOx3, CN II-XII grossly intact, no nystagmus, no focal deficits, str 5/5, sensation intact throughout Psych: Mood-affect congruent. Speech pace and content normal. Judgement somewhat impaired by worry/perseveration on recent mild COVID infection. Discharge Data Allergies Allergy/AdvReac Type Severity Reaction Status Date / Time isoflurane Allergy Severe Unknown Verified 05/08/24 09:32 Nitrate Analogues Allergy Mild Verified 05/08/24 09:32 nitrofurantoin Allergy Mild Verified 05/08/24 09:32 Sulfa (Sulfonamide Allergy Mild Verified 05/08/24 09:32 Antibiotics) sulfamethoxazole Allergy Mild Verified 05/08/24 09:32 trimethoprim Allergy Mild Verified 05/08/24 09:32 vancomycin Allergy Verified 05/08/24 09:32 Consultations 05/27/24 16:28 ED Decision to Admit Stat 05/28/24 15:17 Burn CD for patient Routine Ordered Studies 05/28/24 05:40 05/28/24 05:40 IgG 542.2 IgA 52 UA negative CXR 1V COMPARISON STUDY: Chest radiograph May 08, 2024. FINDINGS: Lung volumes are normal. A hazy 3.8 cm right apical density is present. Postoperative findings within the left lung are noted. There is no pneumothorax or pleural effusion. Cardiac size is normal. Mediastinal contours are normal. There is no evidence for pulmonary edema. IMPRESSION: Hazy 3.8 cm right apical density. This is likely artifactual and related to overlying soft tissues. However, a focus of pneumonia or a pulmonary lesion cannot be excluded. A chest CT is recommended. CT HEAD w/o con COMPARISON STUDY: Head CT April 15, 2008. FINDINGS: No acute intracranial hemorrhage, midline shift or mass effect is present. The ventricular system is unremarkable. The basal cisterns are patent. No extra-axial collections are present. There are no findings to suggest acute dural sinus thrombosis or acute territorial infarct. No significant calvarial abnormalities are present. Left maxillary sinus air-fluid level is present. There is moderate ethmoid sinus mucosal thickening. IMPRESSION: 1. No acute intracranial findings. 2. Left maxillary sinus air-fluid level and moderate ethmoid sinus mucosal thickening. The findings may represent acute sinusitis. CTA Head COMPARISON STUDY: Head CT April 15, 2008. FINDINGS: No acute intracranial hemorrhage, midline shift or mass effect is present. System is normal. Basal cisterns are patent. There are no extra-axial collections. There is a moderate-sized air-fluid level within the left maxillary sinus. There is moderate ethmoid sinus mucosal thickening. There are minimal secretions within the sphenoid sinuses. The bilateral M1, M2, A1 and A2 segments are patent. There is no intracranial aneurysm. Posterior circulation is intact. No vessel occlusion is identified. IMPRESSION: 1. No large vessel occlusion. No intracranial aneurysm. 2. Left maxillary sinus air-fluid level with moderate ethmoid sinus mucosal thickening. The findings favor acute sinusitis. CTA Neck FINDINGS: Visualized bilateral common and internal carotid and vertebral arteries show no significant narrowing or occlusion. Left vertebral artery is diminutive beyond PICA, anatomic variant. There is a small amount of layering fluid in the left maxillary sinus consistent with sinusitis. There are moderate cervical spine degenerative changes. IMPRESSION: No significant arterial narrowing or occlusions seen at the neck. MR Head Without Intravenous Contrast COMPARISON: Same day CT head FINDINGS: Brain: No diffusion restriction to suggest acute cerebral ischemia. No acute intracranial hemorrhage. No mass-effect or shift. Proximal intracranial flow voids appear normal. Age-related parenchymal volume loss. Scattered punctate foci of FLAIR signal hyperintensity in the cerebral white matter in keeping with minimal chronic small vessel ischemic change. Ventricles: Unremarkable. No hydrocephalus. Bones/joints: Unremarkable. No acute fracture. Sinuses: Ethmoid air cell mucosal thickening with fluid levels in the left maxillary sinus and right sphenoid sinus. Mastoid air cells: Unremarkable as visualized. No mastoid effusion. Orbits: Lens replacements. IMPRESSION: 1. No diffusion restriction to suggest acute cerebral ischemia. 2. Ethmoid air cell mucosal thickening with fluid levels in the left maxillary sinus and right sphenoid sinus. Correlate for sinusitis. CT Chest w/o con Lungs and pleural spaces: There is a staple line with associated nodular and eccentrically calcified thickening left apex with the nodular area measuring 1.4 x 0.9 x 2.0 cm. There is mild scarring in the right lung apex. No bronchiectasis, honeycombing or reticulation. No pleural effusion or pneumothorax. Heart: No abnormality noted. Thyroid: No abnormality noted. Bones/joints: Degenerative changes noted in the scoliotic spine. No acute osseous abnormality noted. Old left rib deformity. No acute osseous abnormality. Soft tissues: No significant abnormality noted. Vasculature: Minimal atherosclerosis of the aorta. No aneurysm. Lymph nodes: No enlarged lymph nodes. Kidneys and ureters: Hyperdensity in the collecting system of each kidney typical of recent intravenous contrast injection. Simple right renal cyst/s. No simple cyst follow-up necessary. Left kidney appears normal. No renal stone, hydronephrosis or perinephric fluid. IMPRESSION: Eccentrically calcified nodular thickening along the staple line in the left upper lung. In the absence of a prior study to compare, consider PET/CT. Hospital Course (1) Dizziness: (2) Hypogammaglobulinemia: Dominick Eddy is a 74-year-old female with PMH of HTN, hypothyroidism, IgG/IgA deficiency, breast cancer, wedge resection of left lung (2012) and recent COVID (tested +ve 05/08, s/p full course Paxlovid). She presented on 05/27 after a prolonged (~3h) episode of dizziness, nausea, and chills. Her symptoms had resolved by admission and her vitals quickly stabilized. Her workup for possible stroke was negative. Her chest imaging was comparable to past reports. She was deemed safe for discharge when history, exam, and imaging findings suggested a viral labyrinthitis was the most likely problem. #Vertigo - Pt reports waking at 3am to go to the bathroom, felt so dizzy she to hold onto the smtih. Sx did not feel like simple lightheadedness from standing, and persisted even if she sat or lay down. She considered possible causes: tried to sip some Pedialyte to rehydrate; had some candy in case of hypoglycemia; checked her BP. When she saw a systolic of ~190, she came to to hospital. Reports this episode was notable in its length (had brief episode of vertigo ~1y ago) and occurrence even at rest. - Head CT, head/neck CTA, and brain MRI all without acute findings. BMP only notable for mild hyponatremia (134). Blood glucose 131. Initial BP 190/84; quickly improved to 150s/80s. Orthostatic vitals + for SBP drop from 148 sitting to 127 standing w no significant change in HR. Neuro exam normal. - Meclizine 12.5mg q6h available prn but not given. 05/27 PM losartan held d/t permissive hypertension pending brain MRI. Other home meds continued. - Sx likely d/t viral labyrinthitis given recent COVID, lack of neuro deficits, and duration and quality of symptoms. No intervention or new medication needed after discharge #IgG deficiency - IgG 542 & IgA 52 on 05/27; pt provided values from Feb 2024 with IgG 516 and IgA 47 - May have contributed to severity of infection. No acute intervention indicated; recommended outpt f/u with allergy/immunology #Pulmonary nodule - CXR showed hazy 3.8 cm right apical density. CT chest showed eccentrically calcified nodular thickening along the staple line in the left upper lung - Pt provided report from past scans w nearly identical findings. Low concern for malignancy, no acute intervention warranted Total Time Total Time Spent Total Time Spent (In Minutes): >30 Discharge Plan Discharge Items Patient Disposition: Home - Self-Care Reason For Visit: VERTIGO V. STROKE-LIKE SYMPTOMS Discharge Diagnosis: labyrinthitis Activity: Per Instructions section Non-emergency contact: Primary Care Provider Call non-emergency contact if: you have any medication questions, your symptoms worsen and your pain is unusual for you Follow-up/Referrals: Sheng Hamilton M.D. [Primary Care Provider] - 06/11/24 11:00 am Diet: Regular Addtl Attending Provider Instructions: You were admitted to the hospital after an episode of dizziness that lasted a few hours and had no discernable cause. You had imaging done of your brain and head/neck vasculature, and there were no acute abnormalities except some signs of sinusitis. We ruled out stroke and other serious potential causes. We determined the cause was likely viral labyrinthitis, or inflammation of the inner ear related to your recent COVID infection. The episode spontaneously resolved, and we do not anticipate a recurrence. If you do experience such prolonged dizziness again, find a safe place to rest until it passes. You may take medicine for nausea if needed. If you ever have lightheadedness when standing up, stand still for a moment until it passes. During your hospitalization, we also did chest imaging, which showed nodular thickening along the staple line in your left upper lung. The findings were unconcerning and very similar to previous imaging from [facility] that you showed us. We also tested your immunoglobulin levels, and your IgG and IgA were comparable to the levels you showed from February 2024 (now 542 and 52, respectively). You were deemed safe for discharge when your symptoms resolved, your vitals were stable, and your workup yielded negative results. Medications Your medication list has been reviewed and reconciled. An updated list is included with your discharge paperwork; please review this list closely. No significant changes were made during this admission or discharge. Take your medications as instructed; do not skip a dose. Make sure all of your doctors know every medicine you are taking (including szzr-wep-ukdagck medicines, vitamins, and supplements). Call your PCP before taking any new medicines because some of these may interact with your current medications, or may make your symptoms worse. Follow-up appointments: Make a follow-up appointment with your PCP within the next week. It is very important that you follow up with them shortly after discharge from the hospital. We recommended seeing an sba underwriter here in [place], e.g. Dr. Scarlett Sexton or Dr. Marck Camarillo with [facility]. You can contact their office at . Keep all your follow-up appointments as already scheduled. If you cannot make an appointment, notify your provider. You may call [phone] and ask to leave a message for Dr. Jarquin if you have any issues filling your new prescriptions or any questions about your hospitalization. Contact your PCP if your symptoms return or worsen. Call [phone] or go to the ER if you experience any of the following: Sudden, severe abdominal pain or nausea/vomiting Severe chest pain, or chest pain that radiates (moves) to your jaw or arm Sudden, severe shortness of breath or difficulty breathing Thank you for allowing us to participate in your care. Pending Studies at Discharge: No Stand-Alone Forms: My [facility], Smoking Cessation Medications and DC Order Prescriptions: Continued levothyroxine [Synthroid] 75 mcg Tablet 75 mcg PO 5XWK Rx Instructions: Saturday - Saturday losartan 25 mg Tablet 25 mg PO BID multivitamin Tablet 1 tab PO BID famotidine [Pepcid] 20 mg Tablet 20 mg PO DAILY PRN (Reason: Heartburn) levothyroxine [Synthroid] 50 mcg tablet 50 mcg PO 2XWK Rx Instructions: Saturday and Saturday. Start Date 04/10/24 x6 weeks Probiotic 3 billion cell Capsule 3,000 mmu cells PO DAILY Rx Instructions: administer with a meal albuterol sulfate [Ventolin HFA] 90 mcg/actuation HFA aerosol inhaler 2 inh inhalation .q4-6h PRN (Reason: shortness of breath or wheezing) Qty: 6.7 0RF ondansetron 4 mg tablet,disintegrating 4 mg PO Q6H PRN (Reason: nausea and vomiting) Qty: 15 0RF Discharge Orders: Discharge Order (Routine); Ordered 05/28/24 Ordered By: Elyse Jarquin Admission Data Admit Date/Time: 05/27/24 17:05 Attending Provider: John Davidson Admit Provider: Sanket Otoole Primary Care Provider: Sheng Hamilton Other Providers: Sanket Otoole Supervising Physician Co-Signing Physician Notes I personally examined the patient and verified all quintanilla points of history and exam, discussed case, and agree with decision making with Dr Jarquin Feeling better less dizzy. Feels up to going home. Ongoing congestion and runny nose for last 4 weeks or so. Using nasal irrigation. While she did have an orthostatic drop in her blood pressure with standing, she did not feel dizzy at this time. Vitals noted, in general she is awake and alert pleasant no distress. HEENT normocephalic atraumatic mucous membranes moist. Breathing unlabored no accessory muscle use good effort. Skin without rashes pallor or icterus. Neuro without focal deficits. Dizzinessseems most consistent with a viral labyrinthitis that is improvingcorroborated by recent COVID and sinus congestion noted on imaging (and more importantly symptomatically). Highly doubt bacterial given how diffuse it is and also she noted recently being on antibiotics and it did not get better. Nontoxic-appearing. Appears safe/stable for home. Encourage continued use of nasal irrigation. IgG as well as IgA deficiencyshe has been reticent for treatment because of concern of VTE. I discussed with her while I do not have specific expertise in IgG deficiency or IVIG, for many conditions that we treat in the hospital we have utilized IVIG many times and I do not anecdotally see VTE is a significant risk. Also discussed that her levels could potentially be in a range where a bystander immunity might be adequate as opposed to IVIG infusion. Discussed this would be best determined by allergy/immunology since this is directly in their fieldand will ask for referral to be placed for this. No strokesymptoms all due to labyrinth-itis CT chest findingsreport appears [place] [facility] so that her doctor at [facility] can directly view the films and compare to priorbut it does not seem like we have any new process at play. Resident Activity Tracking Resident Involvement: Resident Care Provided Care Provided: Adult Hospital Medicine
--- NOTE | 2024-05-28 16:23 | Billing Data ---
Date of Service May 28, 2024 Coding Level of Care Code 71152 INP/OBS DISCH >30 MIN
[2024-05-28 16:47] VITALS: BP 125/67
[2024-05-30] MEDS ORDERED: LEVOTHYROXINE SODIUM 50 MCG TABLET PO SCH (06:30)
== END 2024-05-28 18:29 | disposition home or self-care (01) ==
LOC: 2N 11:26 → ED 11:26 → SUATTDRO 17:05 → 2N 20:06